=== PATIENT | female | born 1950 | race Asian ===

== ENCOUNTER 2023-02-25 15:24 | Inpatient (IN) ==
[2023-02-25] MEDS ORDERED: OPTIRAY 320 500ml IV ONE (15:52)
[2023-02-25 16:05] LABS: Basophils # (auto) 0.07 K/uL (0-0.2); Eosinophils # (auto) 0.64 K/uL (0-0.50); Eosinophils % (auto) 9.4 %; Hematocrit (blood only) 38.4 % (37.0-47.0); Hemoglobin 12.9 g/dl (12.0-16.0); Immature Granulocytes # (auto) 0.07 K/uL (0.01-0.20); Lymphocytes # (auto) 1.66 K/uL (1.2-3.4); Lymphocytes % (auto) 24.4 %; Mean Corpuscular Hemoglobin 31.1 pg (25.0-34.0); Mean Corpuscular Hgb Conc 33.6 g/dL (32.0-36.0); Mean Corpuscular Volume 92.5 fL (80.0-100.0); Mean Platelet Volume 10.3 fL (9.4-12.4); Monocytes # (auto) 0.59 K/uL (0.11-0.59); Monocytes % (auto) 8.7 %; Neutrophils # (auto) 3.78 K/uL (1.40-6.50); Neutrophils % (auto) 55.5 %; Platelet Count 235 K/uL (130-400); RDW Coefficient of Variation 14.2 % (11.5-14.5); RDW Standard Deviation 47.9 fL (36.4-46.3); Red Blood Count 4.15 M/uL (4.20-5.40); White Blood Count 6.81 K/ul (4.8-10.8)
--- NOTE | 2023-02-25 16:09 | CT Scan Report ---
CT head/brain wo con, CT angio neck with con, CT angio head w con CLINICAL HISTORY: 72 years-old Female with neuro deficit, acute stroke suspected. Acute strokelike s ymptoms TECHNIQUE: Multiple axial CT images of the head were obtained without contrast. CTA had and neck was also obtained following the intravenous ministration of 111 Optiray 320. 3-D coronal and sagittal ID PS were obtained and submitted for review. All measurements were obtained according to NASCET criteri a. A dose lowering technique was utilized adhering to the principles of ALARA. CT DOSE: 1047.40 mGy.cm COMPARISON: None. FINDINGS: CT HEAD: No acute intracranial hemorrhage, midline shift, intracranial mass, hydrocephalus, territorial ischem ia or abnormal extra-axial collection. Involutional changes with chronic microvascular ischemic disea se. The calvarium is intact. Trace mastoid effusions. Mild mucosal thickening of the paranasal sinuses. CTA HEAD AND NECK: Cardiomegaly with prior median sternotomy. Atherosclerosis of the aorta. Patency of the innominate an d imaged subclavian arteries. The common carotid arteries are widely patent. Minimal atherosclerosis of the internal carotid arteries without significant stenosis. There is tortuosity within the distal cervical segments of the internal carotid arteries. The middle and anterior cerebral arteries appear patent. The vertebral arteries are codominant and appear widely patent. The basilar and posterior cer ebral arteries are also patent. Cerebral venous sinuses are patent. There is no abnormal intracranial enhancement. No pneumothorax. Unremarkable soft tissues. Degenerative changes of the cervical spine. IMPRESSION: 1. No acute intracranial abnormality. 2. Unremarkable CTA of the head and neck. ACT 112: Negative or not required by law. The above report was generated using voice recognition software. It may contain grammatical, syntax o r spelling errors. Electronically signed by: Fernando Madsen M.D. 02/25/2023 4:07 PM
[2023-02-25 16:23] LABS: Alanine Aminotransferase 15 U/L (7-52); Albumin Globulin Ratio 1.1 (0.9-2); Albumin Level 4.3 gm/dl (3.4-5.0); Alkaline Phosphatase 85 U/L (34-104); Anion Gap 8 (3-11); Aspartate Aminotransferase 35 U/L (13-39); BUN Creatinine Ratio 20.9 (10-20); Bilirubin,Total 0.6 mg/dl (0.2-1.0); Blood Urea Nitrogen 19 mg/dl (6-23); Calcium 9.3 mg/dl (8.6-10.3); Carbon Dioxide 24 mmol/L (21-32); Chloride 103 mmol/L (98-107); Est GFR (African American) 74.1 ml/min; Est GFR (Non-African American) 63.9 ml/min; Globulin 3.8 gm/dl (2.5-4.0); Glucose 131 mg/dl (70-99(Fasting)); Magnesium 2.1 mg/dl (1.7-2.4); Potassium 4.7 mmol/L (3.5-5.1); Sodium 135 mmol/L (136-145); Total Protein 8.1 gm/dl (6.0-8.3)
[2023-02-25] MEDS ORDERED: METOPROLOL TARTRATE 1 MG/ML VIAL IV STA (16:33)
[2023-02-25 16:36] LABS: INR 1.4 (0.9-1.1); Partial Thromboplastin Ratio 1.1; Partial Thromboplastin Time 30.4 Seconds (21.0-31.0); Prothrombin Time 15.4 Seconds (9.0-12.0)
[2023-02-25] MEDS ORDERED: SODIUM CHLORIDE 0.9% 10ML FLUSH IV STA (16:42)
[2023-02-25] MEDS ORDERED: STAT IV STA (16:42)
[2023-02-25] MEDS ORDERED: No Aspirin within 24hrs of THROMBOLYTIC-Stroke PO SCH (16:45)
[2023-02-25 16:48] LABS: Troponin I High Sensitivity 306.4 pg/ml (0-14)
[2023-02-25] MEDS ORDERED: TENECTEPLASE 15 MG in SYRINGE 0 ML IV ONE (16:52)
--- NOTE | 2023-02-25 17:43 | XRay Report ---
SINGLE VIEW CHEST CLINICAL HISTORY: Neurological deficit. Stroke like symptoms. FINDINGS: An AP, portable, upright chest radiograph is obtained. No prior studies are available for c omparison at the time of dictation. The patient is status post midline sternotomy and cardiac valve s urgery. The heart is enlarged noting atherosclerotic calcification of the thoracic aorta. The pulmona ry vasculature is noncongested. Nonspecific interstitial thickening likely chronic. There is bibasila r scarring/atelectasis. No airspace consolidation or large pleural effusion is identified. No pneumot horax is seen. The skeletal structures are osteopenic. The bony thorax is grossly intact. IMPRESSION: Cardiomegaly with no acute cardiopulmonary abnormality identified. ACT 112: Negative or not required by law. Electronically signed by: Nathen Katz M.D. 02/25/2023 5:42 PM
[2023-02-25] MEDS ORDERED: LABETALOL HCL IV 5 MG/ML 20ML IV STA (18:05)
[2023-02-25] MEDS ORDERED: hydrALAZINE HCL 20 MG/ML VIAL IV ONE (18:33)
--- NOTE | 2023-02-25 18:47 | History & Physical Report ---
Date of Service February 25, 2023 Assessment & Plan (1) Stroke-like symptoms: Plan: Patient is 72 y/o F with PMH mechanical valve replacement in 2000 in [place], on chronic anticoagulation presented to ER with her son with c/o dysarthria prior to arrival. Speaks Artemio, gujarati. Last anticoagulate taken yesterday evening. In ER noted dysphagia and right sided facial droop. Stroke alert. Patient was given TNK. During ER course right facial droop and dysarthria have resolved. Hypertensive in ER and given labetalol and hydralazine CT Head: No acute intracranial abnormality CTA Head, Neck: No acute intracranial abnormality. Unremarkable CTA of the head and neck. CXR: Cardiomegaly with no acute cardiopulmonary abnormality identified. Admit ICU for observation after TNK Lipid panel, A1c in am MRI brain if able to confirm mechanical valve info. Son is trying to find more info. The MRI department reached out to the websphere administrator, however websphere administrator was unable to look up information on this since this was done outside of the [place]. MRI on hold until further information can be obtained Echo aspiration precautions PT/OT consult Hold aspirin and Coumadin equivalent Neurology consult Repeat CT head (2) Atrial fibrillation: Plan: In ER noted to have atrial fibrillation. HR up to low 100s. Was given Lopressor 5 mg IV with improvement of heart rate down into the 80s No known prior history atrial fibrillation per patient and patient's family Echo Monitor HR, may need further rate control On home med equivalent to Coumadin. Hold for now secondary to receiving TNK Cardiology consult TSH in am (3) Elevated troponin: Plan: High-sensitivity troponin: 306. Denies chest pain May be demand ischemia from atrial fibrillation RVR Trend troponin EKG: Atrial fibrillation, rate 99, nonspecific ST and T wave changes Repeat EKG in a.m. Cardiology consult (4) Mechanical heart valve present: Plan: History mechanical heart valve replacement Chronically anticoagulated on equivalent Coumadin INR: 1.4 DVT Prophylaxis SCDs Full code as per discussion with pt, pt's son Pt was seen and care coordinated with Dr Gill. See addendum I spent a total of 78 minutes reviewing notes, outpatient records, labs, medication, coordinating, documenting and providing care for this patient excluding time spent in the performance of separately billed services. History of Present Illness Chief Complaint: Speech changes Primary Care Provider: NO PCP Patient is 72 y/o F with H mechanical valve replacement in 2000 in [place], on chronic anticoagulation presented to ER with her son with c/o dysarthria prior to arrival. History obtained from patient, patient's son. Speaks Artemio, gujarati. Hand Clerical Verifier services were needed. Reports that patient was riding in the car with her daughter in law. Daughter in law thought patient was sleeping however tried to arouse and was difficult to understand patient and she noticed patient had right facial droop and was drooling. She was having difficulty talking. Reports symptoms started approximately 15 minutes prior to arrival. In ER the wrap knitting machine operator noted dysphagia and tele stroke alert was called. Patient was given TNK. During ER course right facial droop and dysarthria have resolved. Denies fever/chills, diaphoresis, N/V/D/C, MCKAY, dizziness, syncope, vision changes, neck pain, CP, SOB, palpitations, cough, abdominal pain, paresthesias, weakness, extremity weakness, extremity edema, rashes, urinary symptoms. Reports had anticoagulant last night. Denies No known afib, HTN, TIA, stroke Allergies Allergy/AdvReac Type Severity Reaction Status Date / Time No Known Allergies Allergy Verified 02/25/23 16:22 Home Medications Medication Instructions Recorded Confirmed Type Acenocoumarol 0.5 mg PO DAILY 02/25/23 02/25/23 History Spironlactone + Frusemide 1 tab PO DAILY 02/25/23 02/25/23 History aspirin 81 mg tablet,delayed 81 mg PO DAILY 02/25/23 02/25/23 History release carvedilol 12.5 mg tablet 12.5 mg PO BID 02/25/23 02/25/23 History Past Med/Surg History Medical History (Updated 02/25/23 @ 20:15 by Nelly Norman PA-C) Chronic anticoagulation Surgical History (Updated 02/25/23 @ 19:12 by Nelly Norman PA-C) Mechanical heart valve present Family History (Updated 02/26/23 @ 09:31 by Kevin Holden MD) Mother , of a stroke at age 65 Stroke Father , age 60 from throat cancer Cancer Social History (Updated 02/25/23 @ 19:15 by Nelly Schreckengost, PA-C) Smoking Status: Never smoker Hx Alcohol Use: No Hx Substance Use: No Preferred Language: Gujarati Communication Ability: Impaired Communication Tools: IPad Hand Clerical Verifier Required: Yes Beliefs That Will Affect Care: None Current Living Situation: Spouse Current Living Situation Comment: home with current occupational status: unemployed Feels Safe at Home: Yes Assistive Devices: None Review of Systems Review of Systems: All systems reviewed & are unremarkable except as noted in HPI & below Physical Exam Physical Exam: General: no distress, WDWN Head: normocephalic, atraumatic Eyes: PERRL, EOM's intact, conjunctiva non-injected, anicteric ENT: normal inspection external ears, nose, mucous membranes moist Neck: supple, trachea midline Lungs: clear, no respiratory distress, no wheezing/rhonchi/rales CV: irregularly irregular, rate 80, + murmur, no pretibial edema Abd: normal BS, soft, non-tender Ext: no cyanosis, no calf tenderness Neuro: A&O x 3, EOMs intact. No nystagmus, facial sensation is intact and symmetric, face is strong and symmetric, hearing grossly intact, soft palate elevates symmetrically, no dysarthria, houlder shrug intact, tongue is midline, normal movement, no fasciculations, bilateral upper and lower extremities 5/5 strength Skin: warm, dry Results & Data Results & Data Vital Signs (Past 12 Hours) Vital Signs Temp Pulse Pulse Resp BP BP Pulse Ox 02/25/23 18:30 87 17 179/118 H 95 02/25/23 18:15 79 16 167/109 H 96 02/25/23 18:00 76 17 184/121 H 97 02/25/23 17:30 36.8 C 81 17 145/91 H 98 02/25/23 17:19 81 20 134/95 98 02/25/23 17:15 98 H 16 141/106 H 98 02/25/23 17:00 84 16 155/92 H 96 02/25/23 16:59 97 H 152/105 H 02/25/23 16:44 97 H 18 159/93 H 96 02/25/23 16:18 102 H 02/25/23 16:08 106 H 22 156/106 H 96 02/25/23 15:26 36.6 C 106 H 18 155/103 H 99 O2 Del Method 02/25/23 18:30 Room Air 02/25/23 18:15 Room Air 02/25/23 18:00 Room Air 02/25/23 17:30 Room Air 02/25/23 17:19 Room Air 02/25/23 17:15 Room Air 02/25/23 17:00 Room Air 02/25/23 16:59 02/25/23 16:44 Room Air 02/25/23 16:18 02/25/23 16:08 Room Air 02/25/23 15:26 Room Air Laboratory Results Short CBC 02/25/23 Range/Units 15:44 WBC 6.81 (4.8-10.8) K/ul Hgb 12.9 (12.0-16.0) g/dl Hct 38.4 (37.0-47.0) % Plt Count 235 (130-400) K/uL BMP 02/25/23 15:44 Sodium 135 L Potassium 4.7 Chloride 103 Carbon Dioxide 24 BUN 19 Creatinine 0.91 Glucose 131 H Calcium 9.3 Liver Function 02/25/23 Range/Units 15:44 Total Bilirubin 0.6 (0.2-1.0) mg/dl AST 35 (13-39) U/L ALT 15 (7-52) U/L Alkaline Phosphatase 85 (34-104) U/L Albumin 4.3 (3.4-5.0) gm/dl Diagnostic Findings Chest X-Ray 02/25/23 15:41 SINGLE VIEW CHEST CLINICAL HISTORY: Neurological deficit. Stroke like symptoms. FINDINGS: An AP, portable, upright chest radiograph is obtained. No prior studies are available for comparison at the time of dictation. The patient is status post midline sternotomy and cardiac valve surgery. The heart is enlarged noting atherosclerotic calcification of the thoracic aorta. The pulmonary vasculature is noncongested. Nonspecific interstitial thickening likely chronic. There is bibasilar scarring/atelectasis. No airspace consolidation or large pleural effusion is identified. No pneumothorax is seen. The skeletal structures are osteopenic. The bony thorax is grossly intact. IMPRESSION: Cardiomegaly with no acute cardiopulmonary abnormality identified. ACT 112: Negative or not required by law. Electronically signed by: Nathen Katz M.D. 02/25/2023 5:[address] 02/25/23 15:41 CT head/brain wo con, CT angio neck with con, CT angio head w con CLINICAL HISTORY: 72 years-old Female with neuro deficit, acute stroke suspected. Acute strokelike symptoms TECHNIQUE: Multiple axial CT images of the head were obtained without contrast. CTA had and neck was also obtained following the intravenous ministration of 111 Optiray 320. 3-D coronal and sagittal MIPS were obtained and submitted for review. All measurements were obtained according to NASCET criteria. A dose lowering technique was utilized adhering to the principles of ALARA. CT DOSE: 1047.40 mGy.cm COMPARISON: None. FINDINGS: CT HEAD: No acute intracranial hemorrhage, midline shift, intracranial mass, hydrocephalus, territorial ischemia or abnormal extra-axial collection. Involutional changes with chronic microvascular ischemic disease. The calvarium is intact. Trace mastoid effusions. Mild mucosal thickening of the paranasal sinuses. CTA HEAD AND NECK: Cardiomegaly with prior median sternotomy. Atherosclerosis of the aorta. Patency of the innominate and imaged subclavian arteries. The common carotid arteries are widely patent. Minimal atherosclerosis of the internal carotid arteries without significant stenosis. There is tortuosity within the distal cervical segments of the internal carotid arteries. The middle and anterior cerebral arteries appear patent. The vertebral arteries are codominant and appear widely patent. The basilar and posterior cerebral arteries are also patent. Cerebral venous sinuses are patent. There is no abnormal intracranial enhancement. No pneumothorax. Unremarkable soft tissues. Degenerative changes of the cervical spine. IMPRESSION: 1. No acute intracranial abnormality. 2. Unremarkable CTA of the head and neck. ACT 112: Negative or not required by law. The above report was generated using voice recognition software. It may contain grammatical, syntax or spelling errors. Electronically signed by: Fernando Madsen M.D. 02/25/2023 4:07 PM Head CTA 02/25/23 15:41 CT head/brain wo con, CT angio neck with con, CT angio head w con CLINICAL HISTORY: 72 years-old Female with neuro deficit, acute stroke suspected. Acute strokelike symptoms TECHNIQUE: Multiple axial CT images of the head were obtained without contrast. CTA had and neck was also obtained following the intravenous ministration of 111 Optiray 320. 3-D coronal and sagittal MIPS were obtained and submitted for review. All measurements were obtained according to NASCET criteria. A dose lowering technique was utilized adhering to the principles of ALARA. CT DOSE: 1047.40 mGy.cm COMPARISON: None. FINDINGS: CT HEAD: No acute intracranial hemorrhage, midline shift, intracranial mass, hydrocephalus, territorial ischemia or abnormal extra-axial collection. Involutional changes with chronic microvascular ischemic disease. The calvarium is intact. Trace mastoid effusions. Mild mucosal thickening of the paranasal sinuses. CTA HEAD AND NECK: Cardiomegaly with prior median sternotomy. Atherosclerosis of the aorta. Patency of the innominate and imaged subclavian arteries. The common carotid arteries are widely patent. Minimal atherosclerosis of the internal carotid arteries without significant stenosis. There is tortuosity within the distal cervical segments of the internal carotid arteries. The middle and anterior cerebral arteries appear patent. The vertebral arteries are codominant and appear widely patent. The basilar and posterior cerebral arteries are also patent. Cerebral venous sinuses are patent. There is no abnormal intracranial enhancement. No pneumothorax. Unremarkable soft tissues. Degenerative changes of the cervical spine. IMPRESSION: 1. No acute intracranial abnormality. 2. Unremarkable CTA of the head and neck. ACT 112: Negative or not required by law. The above report was generated using voice recognition software. It may contain grammatical, syntax or spelling errors. Electronically signed by: Fernando Madsen M.D. 02/25/2023 4:07 PM Neck CTA 02/25/23 15:41 CT head/brain wo con, CT angio neck with con, CT angio head w con CLINICAL HISTORY: 72 years-old Female with neuro deficit, acute stroke suspected. Acute strokelike symptoms TECHNIQUE: Multiple axial CT images of the head were obtained without contrast. CTA had and neck was also obtained following the intravenous ministration of 111 Optiray 320. 3-D coronal and sagittal MIPS were obtained and submitted for review. All measurements were obtained according to NASCET criteria. A dose lowering technique was utilized adhering to the principles of ALARA. CT DOSE: 1047.40 mGy.cm COMPARISON: None. FINDINGS: CT HEAD: No acute intracranial hemorrhage, midline shift, intracranial mass, hydrocephalus, territorial ischemia or abnormal extra-axial collection. Involutional changes with chronic microvascular ischemic disease. The calvarium is intact. Trace mastoid effusions. Mild mucosal thickening of the paranasal sinuses. CTA HEAD AND NECK: Cardiomegaly with prior median sternotomy. Atherosclerosis of the aorta. Patency of the innominate and imaged subclavian arteries. The common carotid arteries are widely patent. Minimal atherosclerosis of the internal carotid arteries without significant stenosis. There is tortuosity within the distal cervical segments of the internal carotid arteries. The middle and anterior cerebral arteries appear patent. The vertebral arteries are codominant and appear widely patent. The basilar and posterior cerebral arteries are also patent. Cerebral venous sinuses are patent. There is no abnormal intracranial enhancement. No pneumothorax. Unremarkable soft tissues. Degenerative changes of the cervical spine. IMPRESSION: 1. No acute intracranial abnormality. 2. Unremarkable CTA of the head and neck. ACT 112: Negative or not required by law. The above report was generated using voice recognition software. It may contain grammatical, syntax or spelling errors. Electronically signed by: Fernando Madsen M.D. 02/25/2023 4:07 PM Supervising Physician Co-Signing Physician Notes Pt was seen and examined. Agreed with Nelly GARCIA exam, assessment and plan. 72 y/o F with H mechanical valve replacement in 2000 in [facility], on chronic anticoagulation presented to ER with her son with c/o dysarthria and facial droop prior to arrival. History obtained from patient, patient's son who speaks Artemio, gujarati and Bermudian. Hand Clerical Verifier services were needed. Pt was riding in a car with her daughter in-law when she become sleeping. Daaughter tried to arouse her when she noticed slurred speech and right facial droop and drooling. In the ER the wrap knitting machine operator noted the slurred speech and tele stroke alert was called. Since pt arrived in the hospital 15 minutes prior to symptoms onset, decision was made to give TNK. It seems like before administering the TNK, that the ER provider and pharmacy did not know pt was on coumadin like, but INR was 1.4. Currently her symptoms resolved. She is smilling and talking appropriately. Pt or son does not recall any of her provider in the past mentioned any history of Afib or irregular heart. Denies diaphoresis, N/V/D/C, MCKAY, dizziness, syncope, vision changes, neck pain, CP, SOB, palpitations, cough, abdominal pain, paresthesias, weakness, extremity weakness. Her neuro exam was normal with no focal neuro deficit, motor and sensation intake, heart was irregular, with normal lung sound. CT head showed no acute intracranial abnormality. CTA head and neck showed no acute intracranial abnormality. Unremarkable CTA of the head and neck. Will monitor closely in the ICU as per post TPA protocol. ICU team was notified. Will start aspirin and anticoagulant after 24 hrs post TPA. Will consult neuro. Will get MRI of head. Cardiology consult. PT/OT/Speech eval. Continue monitor closely for any abnormal bleeding. MD Jairo
--- NOTE | 2023-02-25 19:43 | Emergency Department Note ---
Impression & Plan Acute cerebrovascular accident (CVA), Mechanical heart valve present, Chronic anticoagulation, Atrial fibrillation by electrocardiogram ED Provider Note CHIEF COMPLAINT: Stroke symptoms HISTORY OF PRESENT ILLNESS: This 72-year-old female patient with past medical history of valve replacement on a Coumadin like drug from [place], presents to the emergency department with strokelike symptoms. Per the patient's family, she was riding in the car with her [id number]. [id number] felt that the patient looked like she was asleep but noticed that she had some facial droop and drooling. She woke her and asked her several questions that she did not answer appropriately. Patient was not able to state her name or her date of . Her speech was a bit slurred. Family brought her to the emergency department for further evaluation. Of note the patient does not speak Maori, she speaks Gujarati and Artemoi. 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 10 systems were reviewed and are otherwise negative. ALLERGIES: see below MEDICATIONS: see below PMH: see below SOCIAL HISTORY: see below DDx: Infection, dehydration, metabolic abnormality, hypo/hyperglycemia, electrolyte disturbance, anemia, hypoxia, cardiac sources, intracerebral event, toxicologic, neurologic, as well as other pathologies. PHYSICAL EXAM: Vital signs reviewed. Noted to be slightly hypertensive General: Well-appearing 72-year-old female, in no significant distress. HEENT: No scleral icterus or conjunctival injection, PERRLA, neck supple. Atraumatic. Cardiovascular: Slightly tachycardic and irregular, systolic ejection murmur Pulmonary: Clear to auscultation bilaterally, normal work of breathing. Abdomen: Soft, nontender, nondistended, positive bowel sounds. Musculoskeletal: Atraumatic, no peripheral edema. Neurologic: Patient awake and alert with slurred speech (per family). Patient does have right-sided facial droop. Intact [id number], equal strength in the bilateral upper extremities and lower extremities. Skin: Warm, dry, no rash EMERGENCY DEPARTMENT COURSE/MDM: This patient was evaluated and appeared to be in no significant distress. IV access was obtained and laboratory work was drawn. The patient was placed on a resident care aid noted to be hypertensive with diastolic blood pressures consistently over 100. Patient arrived with family members to triage. There was some difficulty in obtaining the history as the patient does not speak Maori, son at the bedside did however he was not with the patient when the stroke symptoms occurred. The language line was utilized. Physical examination reveals a right-sided facial droop and some dysarthria per family. Patient was noted to be in atrial fibrillation which she denied any history of. The patient is a limited [facility] for a week and all of her medical care is in [place]. Medications were reviewed and patient is noted to be on Acenocoumarol, anticoagulant similar to Coumadin but not approved in the [place], per pharmacy. [id number] INR was 1.7. Patient's family member states she is on the anticoagulant due to a valve replacement. Telestroke radiologist was consulted, and happened to speak Gujarati which is the patient's negative language. She has determined that the patient had a significant dysarthria and facial droop present. Dr. Ordoñez from telestroke radiology felt the patient met criteria for TNKase. INR through lab was 1.4. Patient's family at the bedside acknowledged the risks and benefits with the telestroke neurologist and it was within the 3-hour window. Medication was administered. Patient did require blood pressure management as systolic pressures were 180 with diastolic pressures were over 100 consistently. Patient was given 5 mg of IV labetalol with modest blood pressure control. She was then given 5 mg of IV hydralazine approximately 30 minutes later for continued hypertension. The patient's neurologic symptoms did improve including facial droop, family noticed improvement of her dysarthria and stated she was back to baseline. The case was discussed with the hospitalist service who agreed to evaluate the patient for admission and further management. The patient was well within the window for TNKase when it was administered, however it was difficult to determine the patient's eligibility due to the language barrier, unfamiliar Coumadin-like drug and awaiting INR. MONITORING: An order for cardiac monitoring was placed and the patient is noted to be in a atrial fibrillation at 99 beats per minute. RADIOLOGY: CXR to my review is negative for focal issue or failure. Head CT to my review is negative for acute intracranial abnormality. Otherwise defer to radiology. CT angio of the head and neck per radiology is unremarkable, please see final reads below EKG: To my interpretation reveals atrial fibrillation at 99 bpm, nonspecific ST and T wave abnormality. QTc 474. No previous for comparison. DISPOSITION: Admission I have personally spent 75 minutes of critical care time in the direct management of this patient. This was a life/limb threatening event. This 75 minutes is in excess of all separately billable procedures. 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 Beliefs That Will Affect Care: None Current Living Situation: Spouse Current Living Situation Comment: home with current occupational status: unemployed Feels Safe at Home: Yes Assistive Devices: None Allergies Allergies Allergy/AdvReac Type Severity Reaction Status Date / Time No Known Allergies Allergy Verified 02/25/23 16:22 Home Meds Home Medications Medication Instructions Recorded Confirmed Acenocoumarol 0.5 mg PO DAILY 02/25/23 02/25/23 Spironlactone + Frusemide 1 tab PO DAILY 02/25/23 02/25/23 aspirin 81 mg tablet,delayed 81 mg PO DAILY 02/25/23 02/25/23 release carvedilol 12.5 mg tablet 12.5 mg PO BID 02/25/23 02/25/23 Results & Data (ED) Vital Signs Vital Signs - 24 hr 02/25/23 15:26 02/25/23 16:08 02/25/23 16:18 Temperature 36.6 C Temperature Source Temporal Artery Scan Pulse Rate 106 H 102 H Pulse Rate [Apical] 106 H Pulse Rhythm [Apical] Irregular Pulse Strength [Apical] Normal Respiratory Rate 18 22 Respiratory Effort / Characteristics Non-Labored Spontaneous Non-Labored Spontaneous Respiratory Depth Normal Normal Respiratory Pattern Regular Regular Blood Pressure 155/103 H Blood Pressure [Right Arm] 156/106 H Blood Pressure Mean 120 Blood Pressure Mean [Right Arm] 122 Blood Pressure Position Sitting Blood Pressure Position [Right Arm] Pulse Oximetry 99 96 Oxygen Delivery Method Room Air Room Air Sepsis Recent Fever Within 48 Hours No Sepsis New/Unexplained Change in Mental Status No Sepsis Action Taken by Nursing No Action Required 02/25/23 16:44 02/25/23 16:59 02/25/23 17:00 Temperature Temperature Source Pulse Rate 97 H Pulse Rate [Apical] 97 H 84 Pulse Rhythm [Apical] Irregular Irregular Pulse Strength [Apical] Respiratory Rate 18 16 Respiratory Effort / Characteristics Non-Labored Spontaneous Non-Labored Spontaneous Respiratory Depth Normal Normal Respiratory Pattern Regular Regular Blood Pressure 152/105 H Blood Pressure [Right Arm] 159/93 H 155/92 H Blood Pressure Mean Blood Pressure Mean [Right Arm] 115 113 Blood Pressure Position Blood Pressure Position [Right Arm] Semi-fowlers Pulse Oximetry 96 96 Oxygen Delivery Method Room Air Room Air Sepsis Recent Fever Within 48 Hours Sepsis New/Unexplained Change in Mental Status Sepsis Action Taken by Nursing 02/25/23 17:15 02/25/23 17:19 02/25/23 17:30 Temperature 36.8 C Temperature Source Oral Pulse Rate Pulse Rate [Apical] 98 H 81 81 Pulse Rhythm [Apical] Irregular Irregular Irregular Pulse Strength [Apical] Respiratory Rate 16 20 17 Respiratory Effort / Characteristics Non-Labored Spontaneous Non-Labored Spontaneous Non-Labored Spontaneous Respiratory Depth Normal Normal Normal Respiratory Pattern Regular Regular Regular Blood Pressure Blood Pressure [Right Arm] 141/106 H 134/95 145/91 H Blood Pressure Mean Blood Pressure Mean [Right Arm] 117 108 109 Blood Pressure Position Blood Pressure Position [Right Arm] Semi-fowlers Semi-fowlers Pulse Oximetry 98 98 98 Oxygen Delivery Method Room Air Room Air Room Air Sepsis Recent Fever Within 48 Hours Sepsis New/Unexplained Change in Mental Status Sepsis Action Taken by Nursing 02/25/23 18:00 02/25/23 18:15 02/25/23 18:30 Temperature Temperature Source Pulse Rate Pulse Rate [Apical] 76 79 87 Pulse Rhythm [Apical] Irregular Irregular Irregular Pulse Strength [Apical] Respiratory Rate 17 16 17 Respiratory Effort / Characteristics Non-Labored Spontaneous Non-Labored Spontaneous Non-Labored Spontaneous Respiratory Depth Normal Normal Normal Respiratory Pattern Regular Regular Regular Blood Pressure Blood Pressure [Right Arm] 184/121 H 167/109 H 179/118 H Blood Pressure Mean Blood Pressure Mean [Right Arm] 142 128 138 Blood Pressure Position Blood Pressure Position [Right Arm] Semi-fowlers Semi-fowlers Pulse Oximetry 97 96 95 Oxygen Delivery Method Room Air Room Air Room Air Sepsis Recent Fever Within 48 Hours Sepsis New/Unexplained Change in Mental Status Sepsis Action Taken by Nursing 02/25/23 18:45 02/25/23 19:03 02/25/23 19:23 Temperature 37.0 C Temperature Source Oral Pulse Rate Pulse Rate [Apical] 92 H 82 86 Pulse Rhythm [Apical] Irregular Pulse Strength [Apical] Respiratory Rate 16 19 20 Respiratory Effort / Characteristics Non-Labored Spontaneous Non-Labored Spontaneous Non-Labored Spontaneous Respiratory Depth Normal Normal Normal Respiratory Pattern Regular Regular Regular Blood Pressure Blood Pressure [Right Arm] 122/89 125/72 143/78 H Blood Pressure Mean Blood Pressure Mean [Right Arm] 100 89 99 Blood Pressure Position Blood Pressure Position [Right Arm] Semi-fowlers Semi-fowlers Semi-fowlers Pulse Oximetry 95 96 98 Oxygen Delivery Method Room Air Room Air Room Air Sepsis Recent Fever Within 48 Hours Sepsis New/Unexplained Change in Mental Status Sepsis Action Taken by Care Home Medications Current Medication List: was personally reviewed by me Laboratory Data Attestation: I reviewed the patient's lab results. 02/25/23 15:44 02/25/23 15:44 Lab Results 02/25/23 02/25/23 02/25/23 Range/Units 15:44 15:44 15:44 WBC 6.81 (4.8-10.8) K/ul RBC 4.15 L (4.20-5.40) M/uL Hgb 12.9 (12.0-16.0) g/dl Hct 38.4 (37.0-47.0) % MCV 92.5 (80.0-100.0) fL MCH 31.1 (25.0-34.0) pg MCHC 33.6 (32.0-36.0) g/dL RDW Std Deviation 47.9 H (36.4-46.3) fL RDW Coeff of Ibeth 14.2 (11.5-14.5) % Plt Count 235 (130-400) K/uL MPV 10.3 (9.4-12.4) fL Immature Gran % (Auto) 1.0 % Neut % (Auto) 55.5 % Lymph % (Auto) 24.4 % Atlantic % (Auto) 8.7 % Eos % (Auto) 9.4 % Baso % (Auto) 1.0 % Neut # (Auto) 3.78 (1.40-6.50) K/uL Lymph # (Auto) 1.66 (1.2-3.4) K/uL Atlantic # (Auto) 0.59 (0.11-0.59) K/uL Eos # (Auto) 0.64 H (0-0.50) K/uL Baso # (Auto) 0.07 (0-0.2) K/uL Immature Gran # (Auto) 0.07 (0.01-0.20) K/uL PT 15.4 H (9.0-12.0) Seconds POC INR (0.9-1.1) INR 1.4 H (0.9-1.1) APTT 30.4 (21.0-31.0) Seconds PTT Ratio 1.1 Sodium (136-145) mmol/L Potassium (3.5-5.1) mmol/L Chloride (98-107) mmol/L Carbon Dioxide (21-32) mmol/L Anion Gap (3-11) BUN (6-23) mg/dl Creatinine (0.6-1.2) mg/dl Est Cr Clr Drug Dosing Est GFR ( Amer) ml/min Est GFR (Non-Af Amer) ml/min BUN/Creatinine Ratio (10-20) Glucose (70-99(Fasting)) mg/dl POC Glucose (70-99) mg/dl Calcium (8.6-10.3) mg/dl Magnesium (1.7-2.4) mg/dl Total Bilirubin (0.2-1.0) mg/dl AST (13-39) U/L ALT (7-52) U/L Alkaline Phosphatase (34-104) U/L Troponin I High Sens (0-14) pg/ml Total Protein (6.0-8.3) gm/dl Albumin (3.4-5.0) gm/dl Globulin (2.5-4.0) gm/dl Albumin/Globulin Ratio (0.9-2) SARS-CoV-2, RNA, NAAT (NEGATIVE) Blood Type B Positive Antibody Screen NEGATIVE 04/21/23 04/21/23 04/21/23 Range/Units 15:44 16:04 16:13 WBC (4.8-10.8) K/ul RBC (4.20-5.40) M/uL Hgb (12.0-16.0) g/dl Hct (37.0-47.0) % MCV (80.0-100.0) fL MCH (25.0-34.0) pg MCHC (32.0-36.0) g/dL RDW Std Deviation (36.4-46.3) fL RDW Coeff of Ibeth (11.5-14.5) % Plt Count (130-400) K/uL MPV (9.4-12.4) fL Immature Gran % (Auto) % Neut % (Auto) % Lymph % (Auto) % Atlantic % (Auto) % Eos % (Auto) % Baso % (Auto) % Neut # (Auto) (1.40-6.50) K/uL Lymph # (Auto) (1.2-3.4) K/uL Atlantic # (Auto) (0.11-0.59) K/uL Eos # (Auto) (0-0.50) K/uL Baso # (Auto) (0-0.2) K/uL Immature Gran # (Auto) (0.01-0.20) K/uL PT (9.0-12.0) Seconds POC INR 1.7 H (0.9-1.1) INR (0.9-1.1) APTT (21.0-31.0) Seconds PTT Ratio Sodium 135 L (136-145) mmol/L Potassium 4.7 (3.5-5.1) mmol/L Chloride 103 (98-107) mmol/L Carbon Dioxide 24 (21-32) mmol/L Anion Gap 8 (3-11) BUN 19 (6-23) mg/dl Creatinine 0.91 (0.6-1.2) mg/dl Est Cr Clr Drug Dosing Not Reportable Est GFR ( Amer) 74.1 ml/min Est GFR (Non-Af Amer) 63.9 ml/min BUN/Creatinine Ratio 20.9 H (10-20) Glucose 131 H (70-99(Fasting)) mg/dl POC Glucose 104 H (70-99) mg/dl Calcium 9.3 (8.6-10.3) mg/dl Magnesium 2.1 (1.7-2.4) mg/dl Total Bilirubin 0.6 (0.2-1.0) mg/dl AST 35 (13-39) U/L ALT 15 (7-52) U/L Alkaline Phosphatase 85 (34-104) U/L Troponin I High Sens 306.4 H* (0-14) pg/ml Total Protein 8.1 (6.0-8.3) gm/dl Albumin 4.3 (3.4-5.0) gm/dl Globulin 3.8 (2.5-4.0) gm/dl Albumin/Globulin Ratio 1.1 (0.9-2) SARS-CoV-2, RNA, NAAT (NEGATIVE) Blood Type Antibody Screen 02/25/23 Range/Units 16:19 WBC (4.8-10.8) K/ul RBC (4.20-5.40) M/uL Hgb (12.0-16.0) g/dl Hct (37.0-47.0) % MCV (80.0-100.0) fL MCH (25.0-34.0) pg MCHC (32.0-36.0) g/dL RDW Std Deviation (36.4-46.3) fL RDW Coeff of Ibeth (11.5-14.5) % Plt Count (130-400) K/uL MPV (9.4-12.4) fL Immature Gran % (Auto) % Neut % (Auto) % Lymph % (Auto) % Atlantic % (Auto) % Eos % (Auto) % Baso % (Auto) % Neut # (Auto) (1.40-6.50) K/uL Lymph # (Auto) (1.2-3.4) K/uL Atlantic # (Auto) (0.11-0.59) K/uL Eos # (Auto) (0-0.50) K/uL Baso # (Auto) (0-0.2) K/uL Immature Gran # (Auto) (0.01-0.20) K/uL PT (9.0-12.0) Seconds POC INR (0.9-1.1) INR (0.9-1.1) APTT (21.0-31.0) Seconds PTT Ratio Sodium (136-145) mmol/L Potassium (3.5-5.1) mmol/L Chloride (98-107) mmol/L Carbon Dioxide (21-32) mmol/L Anion Gap (3-11) BUN (6-23) mg/dl Creatinine (0.6-1.2) mg/dl Est Cr Clr Drug Dosing Est GFR ( Amer) ml/min Est GFR (Non-Af Amer) ml/min BUN/Creatinine Ratio (10-20) Glucose (70-99(Fasting)) mg/dl POC Glucose (70-99) mg/dl Calcium (8.6-10.3) mg/dl Magnesium (1.7-2.4) mg/dl Total Bilirubin (0.2-1.0) mg/dl AST (13-39) U/L ALT (7-52) U/L Alkaline Phosphatase (34-104) U/L Troponin I High Sens (0-14) pg/ml Total Protein (6.0-8.3) gm/dl Albumin (3.4-5.0) gm/dl Globulin (2.5-4.0) gm/dl Albumin/Globulin Ratio (0.9-2) SARS-CoV-2, RNA, NAAT NEGATIVE (NEGATIVE) Blood Type Antibody Screen Administered Medications Discontinued Medications Dopamine HCl/Dextrose (Dopamine 400mg / 250ml D5w) Confirm Administered Dose 400 mg IV .STK-MED ONE Stop: 02/26/23 14:03 Last Admin: 02/26/23 14:08 Dose: Not Given Documented By: WRS Heparin Sodium/Dextrose (Heparin Iv Adult Wt-Based Low-Dose *No* Bolus Protocol) 1 each IV Q5M [facility]; Protocol Stop: 02/26/23 10:26 Last Admin: 02/26/23 15:37 Dose: 1 each Documented By: Admin: 02/26/23 15:37 Dose: 1 each Documented By: Admin: 02/26/23 14:32 Dose: 1 each Documented By: FARA Hydralazine HCl (Hydralazine Hcl 20 Mg/Ml Vial) 5 mg IV NOW ONE Stop: 02/25/23 18:34 Last Admin: 02/25/23 18:38 Dose: 5 mg Documented By: NASEEM Tenecteplase 15 mg/ Syringe 3 mls @ 36 mls/min IV NOW ONE; Protocol Stop: 02/25/23 16:53 Last Admin: 02/25/23 16:52 Dose: 36 mls/min Documented By: NASEEM Co-signed By: TIFF Heparin Sodium/Dextrose (Heparin Sodium/Dextrose) 25,000 units in 500 mls @ 12 mls/hr IV .Q24H [facility]; Protocol Stop: 03/28/23 10:14 Last Admin: 02/26/23 12:30 Dose: 600 units/hr, 12 mls/hr Documented By: JORGE Co-signed By: FARA Promethazine HCl 6.25 mg/ (Sodium Chloride) 50.25 mls @ 201 mls/hr IV NOW STA Stop: 02/26/23 13:42 Last Infusion: 02/26/23 15:38 Dose: 0 mls/hr Documented By: Admin: 02/26/23 14:40 Dose: 201 mls/hr Documented By: FARA Dopamine HCl/Dextrose (Dopamine / D5w) 400 mg in 250 mls @ 0 mls/hr IV .Q0M [facility]; Protocol Stop: 03/28/23 14:14 Last Titration: 02/26/23 14:40 Dose: 0 mcg/kg/min, 0 mls/hr Documented By: Admin: 02/26/23 14:07 Dose: 2.5 mcg/kg/min, 5.4 mls/hr Documented By: JORGE Co-signed By: FARA Ioversol (Optiray 320 500ml) 111 ml IV ONCE ONE Stop: 02/25/23 15:53 Last Admin: 02/25/23 15:55 Dose: 111 ml Documented By: RAMIN Labetalol HCl (Labetalol Hcl Iv 5 Mg/Ml 20ml) 5 mg IV NOW STA Stop: 02/25/23 18:06 Last Admin: 02/25/23 18:08 Dose: 5 mg Documented By: NASEEM Co-signed By: CHUCK Metoprolol Tartrate (Metoprolol Tartrate 1 Mg/Ml Vial) 5 mg IV NOW STA Stop: 02/25/23 16:34 Last Admin: 02/25/23 16:59 Dose: 5 mg Documented By: NASEEM Miscellaneous (Stat Iv) 1 each N/A NOW STA Stop: 02/25/23 16:43 Last Admin: 02/25/23 17:11 Dose: 1 each Documented By: NASEEM Miscellaneous (Icu Protocol For Hyperglycemia) 1 each N/A ACHS ASH Stop: 02/27/23 20:59 Last Admin: 02/26/23 15:37 Dose: Not Given Documented By: Admin: 02/26/23 15:36 Dose: Not Given Documented By: Admin: 02/25/23 23:10 Dose: 1 each Documented By: ALFONSO Sodium Chloride (Sodium Chloride 0.9% 10ml Flush) 20 ml IV NOW STA Stop: 02/25/23 16:43 Last Admin: 02/25/23 16:52 Dose: 20 ml Documented By: NASEEM Imaging Data Radiologist's Impression: Chest X-Ray 02/25/23 15:41 SINGLE VIEW CHEST CLINICAL HISTORY: Neurological deficit. Stroke like symptoms. FINDINGS: An AP, portable, upright chest radiograph is obtained. No prior studies are available for comparison at the time of dictation. The patient is status post midline sternotomy and cardiac valve surgery. The heart is enlarged noting atherosclerotic calcification of the thoracic aorta. The pulmonary vasculature is noncongested. Nonspecific interstitial thickening likely chronic. There is bibasilar scarring/atelectasis. No airspace consolidation or large pleural effusion is identified. No pneumothorax is seen. The skeletal structures are osteopenic. The bony thorax is grossly intact. IMPRESSION: Cardiomegaly with no acute cardiopulmonary abnormality identified. ACT 112: Negative or not required by law. Electronically signed by: Nathen Katz M.D. 02/25/2023 5:[address] 02/25/23 15:41 CT head/brain wo con, CT angio neck with con, CT angio head w con CLINICAL HISTORY: 72 years-old Female with neuro deficit, acute stroke suspected. Acute strokelike symptoms TECHNIQUE: Multiple axial CT images of the head were obtained without contrast. CTA had and neck was also obtained following the intravenous ministration of 111 Optiray 320. 3-D coronal and sagittal MIPS were obtained and submitted for review. All measurements were obtained according to NASCET criteria. A dose lowering technique was utilized adhering to the principles of ALARA. CT DOSE: 1047.40 mGy.cm COMPARISON: None. FINDINGS: CT HEAD: No acute intracranial hemorrhage, midline shift, intracranial mass, hydrocephalus, territorial ischemia or abnormal extra-axial collection. Involutional changes with chronic microvascular ischemic disease. The calvarium is intact. Trace mastoid effusions. Mild mucosal thickening of the paranasal sinuses. CTA HEAD AND NECK: Cardiomegaly with prior median sternotomy. Atherosclerosis of the aorta. Patency of the innominate and imaged subclavian arteries. The common carotid arteries ar e widely patent. Minimal atherosclerosis of the internal carotid arteries without significant stenosis. There is tortuosity within the distal cervical segments of the internal carotid arteries. The middle and anterior cerebral arteries appear patent. The vertebral arteries are codominant and appear widely patent. The basilar and posterior cerebral arteries are also patent. Cerebral venous sinuses are patent. There is no abnormal intracranial enhancement. No pneumothorax. Unremarkable soft tissues. Degenerative changes of the cervical spine. IMPRESSION: 1. No acute intracranial abnormality. 2. Unremarkable CTA of the head and neck. ACT 112: Negative or not required by law. The above report was generated using voice recognition software. It may contain grammatical, syntax or spelling errors. Electronically signed by: Fernando Madsen M.D. 02/25/2023 4:07 PM Head CTA 02/25/23 15:41 CT head/brain wo con, CT angio neck with con, CT angio head w con CLINICAL HISTORY: 72 years-old Female with neuro deficit, acute stroke suspected. Acute strokelike symptoms TECHNIQUE: Multiple axial CT images of the head were obtained without contrast. CTA had and neck was also obtained following the intravenous ministration of 111 Optiray 320. 3-D coronal and sagittal MIPS were obtained and submitted for review. All measurements were obtained according to NASCET criteria. A dose l owering technique was utilized adhering to the principles of ALARA. CT DOSE: 1047.40 mGy.cm COMPARISON: None. FINDINGS: CT HEAD: No acute intracranial hemorrhage, midline shift, intracranial mass, hydrocephalus, territorial ischemia or abnormal extra-axial collection. Involutional changes with chronic microvascular ischemic disease. The calvarium is intact. Trace mastoid effusions. Mild mucosal thickening of the paranasal sinuses. CTA HEAD AND NECK: Cardiomegaly with prior median sternotomy. Atherosclerosis of the aorta. Patency of the innominate and imaged subclavian arteries. The common carotid arteries are widely patent. Minimal atherosclerosis of the internal carotid arteries without significant stenosis. There is tortuosity within the distal cervical segments of the internal carotid arteries. The middle and anterior cerebral arteries appear patent. The vertebral arteries are codominant and appear widely patent. The basilar and posterior cerebral arteries are also patent. Cerebral venous sinuses are patent. There is no abnormal intracranial enhancement. No pneumothorax. Unremarkable soft tissues. Degenerative changes of the cervical spine. IMPRESSION: 1. No acute intracranial abnormality. 2. Unremarkable CTA of the head and neck. ACT 112: Negative or not required by law. The above report was generated using voice recognition software. It may contain grammatical, syntax or spelling errors. Electronically signed by: Fernando Madsen M.D. 02/25/2023 4:07 PM Neck CTA 02/25/23 15:41 CT head/brain wo con, CT angio neck with con, CT angio head w con CLINICAL HISTORY: 72 years-old Female with neuro deficit, acute stroke suspected. Acute strokelike symptoms TECHNIQUE: Multiple axial CT images of the head were obtained without contrast. CTA had and neck was also obtained following the intravenous ministration of 111 Optiray 320. 3-D coronal and sagittal MIPS were obtained and submitted for review. All measurements were obtained according to NASCET criteria. A dose lowering technique was utilized adhering to the principles of ALARA. CT DOSE: 1047.40 mGy.cm COMPARISON: None. FINDINGS: CT HEAD: No acute intracranial hemorrhage, midline shift, intracranial mass, hydrocephalus, territorial ischemia or abnormal extra-axial collection. Involutional changes with chronic microvascular ischemic disease. The calvarium is intact. Trace mastoid effusions. Mild mucosal thickening of the paranasal sinuses. CTA HEAD AND NECK: Cardiomegaly with prior median sternotomy. Atherosclerosis of the aorta. Patency of the innominate and imaged subclavian arteries. The common carotid arteries are widely patent. Minimal atherosclerosis of the internal carotid arteries without significant stenosis. There is tortuosity within the distal cervical segments of the internal carotid arteries. The middle and anterior cerebral arteries appear patent. The vertebral arteries are codominant and appear widely patent. The basilar and posterior cerebral arteries are also patent. Cerebral venous sinuses are patent. There is no abnormal intracranial enhancement. No pneumothorax. Unremarkable soft tissues. Degenerative changes of the cervical spine. IMPRESSION: 1. No acute intracranial abnormality. 2. Unremarkable CTA of the head and neck. ACT 112: Negative or not required by law. The above report was generated using voice recognition software. It may contain grammatical, syntax or spelling errors. Electronically signed by: Fernando Madsen M.D. 02/25/2023 4:07 PM Discharge Plan Visit Data Chief Complaint: TIA Symptoms Stated Complaint: STROKE, TIA SYMPTOMS ED Provider: Christi Noland ED Midlevel Provider: Nathen Obregon Discharge Problem: Acute cerebrovascular accident (CVA), Mechanical heart valve present, Chronic anticoagulation, Atrial fibrillation by electrocardiogram Patient Disposition: Admitted As Inpatient Condition: Critical Discharge Instructions Interventions: ED Discharge Assessment Last Done: 02/25/23 19:45
[2023-02-25] MEDS ORDERED: PHARMACIST DISCHARGE MED REC CONSULT PRN (19:52)
--- NOTE | 2023-02-25 20:39 | Critical Care Consultation ---
Date of Consultation February 25, 2023 Assessment & Plan (1) Stroke-like symptoms: Patient initially presented with dysarthria and left facial droop. No other neurological symptoms reported. -Evaluated by [facility] and TNKase administered in the emergency department at 1652. Patient now presenting to the ICU without any neurological deficits. - CTA head and neck, CT Noncon negative for acute intracranial findings - Patient chronically anticoagulated on CoumadinLike medication from [place], INR subtherapeutic at 1.7.Hold further anticoagulationAnd aspirin for now following TNKase administration - Follow-up MRI and echo results -Follow-up lipid panel and hemoglobin A1c - Follow-up neurology recommendations regarding ASA, Plavix -Monitor in ICU for 24-hour post TNKase protocol and follow-up 24-hour CT head (2) Atrial fibrillation: No prior history and noted in the emergency department to have atrial fibrillation with heart rates in the low 100s. Possible source of stroke? - We will follow-up echo to evaluate for atrial clot - Currently rate controlled with heart rates 80s to 90s. Did receive 1 dose IV metoprolol in the ED. Will control with beta-minerva if needed - Anticoagulated on Coumadin equivalent for artificial valve. We will hold following TNKase - Continuous monitoring on telemetry. Follow-up EKG in a.m. (3) Mechanical heart valve present: No issues at this time. Chronically anticoagulated with equivalent of Coumadin.Holding for 24 hours following TNKase administration. (4) Chronic anticoagulation: Holding for 24 hours following TNKase administration. (5) Elevated troponin: Patient with EKG with atrial fibrillation and mild tachycardia. Likely demand ischemia. No ST elevations on EKG. Troponin 300, will trend. Patient is chronically anticoagulated although she was found to be subtherapeutic with an INR of 1.7. She has received TNKase. Monitor for now History of Present Illness Attending Physician: Jessica Gill MD History of Present Illness Patient is a 72-year-old female with a past medical history of hypertension, and manic mechanical valve replacement in 2000 who presented to the emergency department with strokelike symptoms. Patient is from [place], and speaks Artemio. Patient reported that she was riding in her car with her [id number] this afternoon when she noticed right facial droop and drooling and was having difficulty speaking. Patient presented to the emergency department 15 minutes later and stroke alert was initiated. She went for CT head Noncon, CTA head and neck which were negative. She was evaluated by [facility] telestroke and was determined to be candidate for lysis. She was given TNKase at 1652 and now presents to the ICU for 24-hour monitoring protocol. On arrival to the ICU the patient is alert and oriented and now asymptomatic without facial droop or dysarthria. Patient denies any headache, dizziness, changes in vision, numbness or tingling, changes in gait, weakness, or pain. She denies recent illness or fevers, congestion, shortness of breath, chest pain or palpitations, abdominal pain, nausea vomiting or diarrhea, swelling in hands or feet, changes in urinary frequency. We are awaiting MRI and echo. Patient remained in ICU for further management at this time. Allergies Allergy/AdvReac Type Severity Reaction Status Date / Time No Known Allergies Allergy Verified 02/25/23 16:22 Home Medications Medication Instructions Recorded Confirmed Type Acenocoumarol 0.5 mg PO DAILY 02/25/23 02/25/23 History Spironlactone + Frusemide 1 tab PO DAILY 02/25/23 02/25/23 History aspirin 81 mg tablet,delayed 81 mg PO DAILY 02/25/23 02/25/23 History release carvedilol 12.5 mg tablet 12.5 mg PO BID 02/25/23 02/25/23 History Patient History Medical History Chronic anticoagulation Surgical History Mechanical heart valve present Family History Mother , of a stroke at age 65 Stroke Father , age 60 from throat cancer Cancer Social History Smoking Status: Never smoker Do You Dip or Chew Tobacco: No; Hx Alcohol Use: No Hx Substance Use: No Preferred Language: Josep Communication Ability: Impaired Communication Tools: IPad Underground Supervisor Required: Yes Beliefs That Will Affect Care: None Current Living Situation: Spouse Current Living Situation Comment: home with current occupational status: unemployed Other Information That Helps Us Care for You: No Feels Safe at Home: Yes Safety Concerns: Feels Safe At This Time Assistive Devices: None Review of Systems Review of Systems: All systems reviewed & are unremarkable except as noted in HPI & below Physical Exam Constitutional: WD/WN, vitals as above Eyes: PERRL, conjunctivae normal, anicteric sclerae ENMT: external ear and nose normal, oropharynx normal Neck: trachea midline, no thyromegaly Respiratory: normal respiratory effort, lungs clear to auscultation Cardiovascular: RRR, no murmur, no edema Heart Sounds: + click; no murmur Extremities: no edema Gastrointestinal (Abdomen): normal bowel sounds, soft, nontender, no hepatosplenomegaly Musculoskeletal: no cyanosis or clubbing, extremities motor strength 5/5 Skin: no rashes, warm and dry Neurologic: PERRL, EOMI, accommodation nl, no face palsy, no dysarthria CN's II-XI intact bilaterally Speech / Cognition: no expressive aphasia and no receptive aphasia Motor/Sensory: no tremor Psychiatric: A+Ox3, euthymic affect Results & Data Results & Data Vital Signs (Past 12 Hours) Vital Signs Temp Pulse Pulse Resp BP BP Pulse Ox 02/25/23 19:45 02/25/23 19:23 86 20 143/78 H 98 02/25/23 19:03 37.0 C 82 19 125/72 96 02/25/23 18:45 92 H 16 122/89 95 02/25/23 18:30 87 17 179/118 H 95 02/25/23 18:15 79 16 167/109 H 96 02/25/23 18:00 76 17 184/121 H 97 02/25/23 17:30 36.8 C 81 17 145/91 H 98 02/25/23 17:19 81 20 134/95 98 02/25/23 17:15 98 H 16 141/106 H 98 02/25/23 17:00 84 16 155/92 H 96 02/25/23 16:59 97 H 152/105 H 02/25/23 16:44 97 H 18 159/93 H 96 02/25/23 16:18 102 H 02/25/23 16:08 106 H 22 156/106 H 96 02/25/23 15:26 36.6 C 106 H 18 155/103 H 99 O2 Del Method 02/25/23 19:45 Room Air 02/25/23 19:23 Room Air 02/25/23 19:03 Room Air 02/25/23 18:45 Room Air 02/25/23 18:30 Room Air 02/25/23 18:15 Room Air 02/25/23 18:00 Room Air 02/25/23 17:30 Room Air 02/25/23 17:19 Room Air 02/25/23 17:15 Room Air 02/25/23 17:00 Room Air 02/25/23 16:59 02/25/23 16:44 Room Air 02/25/23 16:18 02/25/23 16:08 Room Air 02/25/23 15:26 Room Air Coding Level of Care Code 35306 IN/OBS CONSULT LVL 4,60M Diagnoses Stroke-like symptoms R29.90 Atrial fibrillation I48.91 Mechanical heart valve present Z95.2 Chronic anticoagulation Z79.01 Elevated troponin R77.8 Time Spent (min) 67
[2023-02-25] MEDS: ICU Protocol for HYPERglycemia SCH (23:10)
[2023-02-26 02:19] LABS: Hematocrit (blood only) 38.3 % (37.0-47.0); Hemoglobin 12.8 g/dl (12.0-16.0); Mean Corpuscular Hemoglobin 31.1 pg (25.0-34.0); Mean Corpuscular Hgb Conc 33.4 g/dL (32.0-36.0); Mean Corpuscular Volume 93.2 fL (80.0-100.0); Mean Platelet Volume 10.3 fL (9.4-12.4); Platelet Count 215 K/uL (130-400); RDW Coefficient of Variation 14.1 % (11.5-14.5); RDW Standard Deviation 48.1 fL (36.4-46.3); Red Blood Count 4.11 M/uL (4.20-5.40); White Blood Count 10.37 K/ul (4.8-10.8)
[2023-02-26 02:37] LABS: BUN Creatinine Ratio 18.8 (10-20); Calcium 9.1 mg/dl (8.6-10.3); Chol HDL Ratio 4.8 (0-5); Creatinine Clr Calc Pharmacy 49.3 ml/min; Est GFR (African American) 86.6 ml/min; Est GFR (Non-African American) 74.7 ml/min; Potassium 4.8 mmol/L (3.5-5.1)
[2023-02-26 02:52] LABS: Thyroid Stimulating Hormone 8.331 uIu/ml (0.300-4.500)
[2023-02-26 03:27] LABS: T4 Free Thyroxine 0.77 ng/dl (0.61-1.60)
[2023-02-26 04:02] LABS: Magnesium 2.1 mg/dl (1.7-2.4); Phosphorus 3.7 mg/dl (2.5-4.9)
--- NOTE | 2023-02-26 08:43 | Hospitalist Progress Note ---
Date of Service February 26, 2023 Assessment & Plan (1) Dysarthria due to acute cerebrovascular accident (CVA): (2) Facial weakness due to acute cerebrovascular disease: Plan: Patient is 72 y/o F with PMH mechanical valve replacement in 2000 in [place], on chronic anticoagulation presented to ER with her son with c/o dysarthria prior to arrival. Speaks Artemio, gujarati. Last anticoagulate taken yesterday evening. In ER noted dysphagia and right sided facial droop. Stroke alert. Patient was given TNK. During ER course right facial droop and dysarthria have resolved. Hypertensive in ER and given labetalol and hydralazine CT Head: No acute intracranial abnormality CTA Head, Neck: No acute intracranial abnormality. Unremarkable CTA of the head and neck. CXR: Cardiomegaly with no acute cardiopulmonary abnormality identified. Admit ICU for observation after TNK MRI brain if able to confirm mechanical valve info. Son is trying to find more info. The MRI department reached out to the family and consumer science professor, however family and consumer science professor was unable to look up information on this since this was done outside of the [place]. MRI on hold until further information can be obtained 02/26-She has new onset atrial fibrillation and a h/o cardiomyopathy in the past with repeat echo this admission consistent with that (EF 25%) The etiology is unclear. She was started on heparin today out of concern for high risk of thromboembolism (apixaban contraindicated, plan to resume coumadin once more stable from hemodynamic perspective) She has been experiencing pauses on the monitor and has also had intermittent nausea and vomiting that began this morning. (3) Atrial fibrillation: Plan: evidently this is chronic and she was managed on coumadin with INR 1.4 on admission Heparin drip as above. She has been experiencing bradycardia with pauses and a trial of dopamine was initiated today but this made her tachycardic and was stopped. (4) Elevated troponin: Plan: High-sensitivity troponin: 306. Denies chest pain May be demand ischemia from atrial fibrillation RVR in the setting of severe diffuse cardiomyopathy cont to follow cardiology recommendations for workup (5) Mechanical heart valve present: Plan: heparin drip now, transition to coumadin once she is more stable. (6) Bradycardia: Plan: symptomatic bradycardia (7) Cardiomyopathy: Plan: chronic, unclear etiology as she lives in [facility] and is cared for there. Reports to be on coreg, spironolactone and lasix, all currently on hold. Heparin drip Full Code Dispo- remains in ICU care for now with symptomatic bradycardia I spent a total of 60 minutes coordinating, documenting, and providing care for this patient excluding time spent in the performance of separately billed services DO Karthik [facility] Hospitalist Admission and Anticipated Discharge Date Admission Date: February 25, 2023 Subjective 72 yo F gujrati speaking female presented with acute stroke s/p TNkinase. Resolution of right facial droop and dysarthria Today she has been having pauses on telemetry and some tachy-chanelle phenomena This may be contributing to her nausea with some dry heaving. after phenergan she denies any nausea at this time but has not eaten anything because it has made her sick denies headache and she is oriented and following instructions. Family preferred to interpret with patient. intermittent numbness on the anterior lower right leg that is not currently present. Review of Systems Review of Systems: All systems were reviewed and negative except as indicated on subjective above. Physical Exam Physical Exam: CONSTITUTIONAL: WNWD, vitals as above, ill appearing EYES: EOMI bilaterally, PERRL, normal conjucctivae, no scleral icterus ENT: external ear and nose normal, oropharynx clear, MMM NECK: trachea midline RESPIRATORY: clear to auscultation bilaterally, no crackles, rales or wheezes, normal respiratory effort CARDIOVASCULAR: regular rate and rhythm, S1 and 2 heard without murmurs, gallops or rubs, no JVD, no peripheral edema CHEST: inspection of chest was normal GASTROINTESTINAL: soft, nontender, ND, no guarding MUSCULOSKELETAL: strength 5/5 throughout, head is normocephalic and atraumatic, SKIN: warm and dry NEUROLOGIC: CN 2-12 grossly intact, no sensory deficit, normal cognition, normal speech, no tremor PSYCHIATRIC: alert cooperative and oriented to person, place and time. Results & Data Results & Data Vital Signs (Past 12 Hours) Vital Signs Pulse Pulse Resp BP BP Pulse Ox O2 Del Method 02/26/23 07:30 94 H 24 137/91 97 Room Air 02/26/23 07:19 95 H 02/26/23 06:31 93 H 19 95 02/26/23 06:31 129/65 02/26/23 06:30 86 18 95 02/26/23 06:15 93 H 18 96 02/26/23 06:00 82 19 02/26/23 06:00 111/71 02/26/23 05:31 91 H 18 94 02/26/23 05:31 109/72 02/26/23 05:30 93 H 17 94 02/26/23 05:01 88 15 99 02/26/23 05:01 128/77 02/26/23 05:00 91 H 15 02/26/23 04:40 86 17 95 02/26/23 04:30 91 H 20 02/26/23 04:30 135/81 02/26/23 04:20 91 H 21 93 02/26/23 04:10 100 H 28 H 94 02/26/23 04:00 87 18 95 02/26/23 04:00 130/78 02/26/23 03:50 93 H 21 94 02/26/23 03:40 103 H 19 94 02/26/23 03:31 89 20 94 02/26/23 03:31 114/76 02/26/23 03:30 87 24 02/26/23 03:20 88 19 94 02/26/23 03:10 91 H 19 94 02/26/23 03:00 96 H 21 02/26/23 03:00 124/80 02/26/23 02:50 93 H 26 H 97 02/26/23 02:40 44 L 20 98 02/26/23 02:30 94 H 12 02/26/23 02:30 117/72 02/26/23 02:20 90 23 93 02/26/23 02:10 88 8 L 97 02/26/23 02:01 127/68 02/26/23 02:01 102 H 20 92 02/26/23 02:00 93 H 16 02/26/23 01:50 91 H 18 93 02/26/23 01:40 92 H 15 96 02/26/23 01:30 88 22 94 02/26/23 01:30 113/81 02/26/23 01:20 90 19 94 02/26/23 01:10 84 12 97 02/26/23 01:00 86 16 02/26/23 01:00 110/88 02/26/23 00:50 98 H 19 96 02/26/23 00:45 89 21 94 02/26/23 00:30 96 H 19 92 02/26/23 00:30 122/75 02/26/23 00:15 91 H 22 95 02/26/23 00:00 85 19 98 02/26/23 00:00 120/76 02/26/23 00:00 120/76 02/25/23 23:45 85 18 99 02/25/23 23:40 85 20 98 02/25/23 23:40 106/71 02/25/23 23:40 106/71 02/25/23 23:30 90 19 98 02/25/23 23:15 92 H 19 97 02/25/23 23:00 88 21 95 02/25/23 23:00 118/84 02/25/23 22:45 93 H 19 96 02/26/23 00:00 97 H 02/25/23 22:30 81 18 02/25/23 22:30 119/80 02/25/23 22:15 92 H 17 95 02/25/23 22:00 89 18 92 02/25/23 22:00 102/69 02/25/23 21:55 120/67 02/25/23 21:55 95 H 14 95 02/25/23 21:50 90 19 94 02/25/23 21:50 117/70 02/25/23 21:50 117/70 02/25/23 21:45 96 H 17 92 02/25/23 21:45 101/66 02/25/23 21:40 119/68 02/25/23 21:40 84 18 02/25/23 21:36 93 H 20 96 02/25/23 21:36 109/82 02/25/23 21:30 93 H 19 02/25/23 21:30 122/73 02/25/23 21:26 101 H 17 95 02/25/23 21:26 125/74 02/25/23 21:21 97 H 18 96 02/25/23 21:21 130/60 02/25/23 21:16 139/104 H 02/25/23 21:16 96 H 19 02/25/23 21:15 93 H 20 02/25/23 21:10 90 22 95 02/25/23 21:10 138/86 02/25/23 21:10 138/86 02/25/23 21:05 133/79 02/25/23 21:05 92 H 20 02/25/23 21:01 90 22 97 02/25/23 21:01 122/83 02/25/23 21:00 92 H 23 02/25/23 20:55 143/79 H 02/25/23 20:55 88 21 95 02/25/23 20:51 97 H 24 98 02/25/23 20:51 119/83 02/25/23 20:45 90 16 02/25/23 20:45 137/86 Laboratory Results Short CBC 02/25/23 02/26/23 Range/Units 15:44 02:02 WBC 6.81 10.37 (4.8-10.8) K/ul Hgb 12.9 12.8 (12.0-16.0) g/dl Hct 38.4 38.3 (37.0-47.0) % Plt Count 235 215 (130-400) K/uL BMP 02/25/23 02/26/23 15:44 02:02 Sodium 135 L 135 L Potassium 4.7 4.8 Chloride 103 104 Carbon Dioxide 24 23 BUN 19 15 Creatinine 0.91 0.80 Glucose 131 H 100 H Calcium 9.3 9.1 Liver Function 02/25/23 Range/Units 15:44 Total Bilirubin 0.6 (0.2-1.0) mg/dl AST 35 (13-39) U/L ALT 15 (7-52) U/L Alkaline Phosphatase 85 (34-104) U/L Albumin 4.3 (3.4-5.0) gm/dl Medications Administered Current Inpatient Medications Aspirin (No Aspirin Within 24hrs Of Thrombolytic-Stroke) 1 each PO UD ASH Stop: 02/26/23 16:44 Miscellaneous (Icu Protocol For Hyperglycemia) 1 each N/A ACHS ASH Stop: 02/27/23 20:59 Last Admin: 02/25/23 23:10 Dose: 1 each Miscellaneous Information (Pharmacist Discharge Med Rec Consult) 1 each N/A UD PRN PRN Reason: Consult Stop: 03/27/23 19:51
--- NOTE | 2023-02-26 09:47 | Neurology Consultation ---
Date of Consultation February 26, 2023 Assessment & Plan (1) Facial weakness due to acute cerebrovascular disease: (2) Dysarthria due to acute cerebrovascular accident (CVA): (3) Hypertension: (4) Atrial fibrillation: (5) Dyslipidemia: (6) Mechanical heart valve present: (7) Elevated TSH: Plan this patient had the acute onset of stroke-like symptoms including right facial droop and speech problems (sounds like a combination of dysarthria and word- finding difficulties -expressive aphasia) the afternoon of February 25. She was given TNKase in the ER and her symptoms quickly resolved thereafter. Today she is largely asymptomatic with no residual deficits on examination, f ocal findings, meningeal signs, or obvious encephalopathy. CT scan of the head and CT angiography of the head and neck were unremarkable. Patient has a mechanical valve and we are uncertain if she can get an MRI of the brain. She does have a history of being on some sort of "Coumadin variant" but her INR was only 1.7 when she came to the emergency room. She was discovered to be in atrial fibrillation and had hypertension. Her blood pressure is a little better controlled this morning. Patient has an elevated total cholesterol and TSH. without an MRI, I cannot be certain that the patient did not have a small stroke versus a TIA ( with or without medication). also, I cannot be certain the extent of small vessel ischemia that could be present. I suspect an embolic event based on her medical issues and history but ischemic cannot be excluded. Recommendations: 1. I would like to get an MRI of the brain but we would have to find out what sort of mechanical valve this patient has , to make sure if it is MRI safe. 2. For now, I would continue with 81 mg aspirin (once the 24 hour post TNKase window has passed) and an anticoagulant such as Eliquis ( I spoke with Dr. Chapman regarding this ), instead of her other medication given to her in [place]. 3. The patient would be a high dose statin candidate, but a regular dose would be reasonable. 4. Control blood pressure as you are doing, aiming for a mean arterial pressure of 95-100. 5. Awaiting echocardiogram results. 6. Follow-up with elevated TSH -I will leave this to primary care. 7. She will likely need a primary care doctor here in [facility] while she is visiting 8. Follow-up CT scan of the head at 24 hours post thrombolytic, per protocol. Overall, I spent a total of 90 minutes with this case including review of records, review of CT films, report generation, direct evaluation the patient at bedside, discussion of the case with the patient and her [id number] at bedside, RN at bedside, Dr. Chapman at bedside, and Dr. Ann, including differential diagnosis and treatment options. History of Present Illness Reason for Consultation: Patient is a 72-year-old, was asked to see at the request of Nelly Norman PA-C, for neurologic consultation regarding possible stroke, post TNK Requesting Physician: Chucho Calvert Attending Physician: Marija Ann, DO History of Present Illness this patient lives in [facility] and in 2000 had a Medtr[employer] mechanical heart valve placed ( uncertain which valve and unknown type/ serial #). She is on some sort of Coumadin derivative (acenocoumaral), 81 mg aspirin spironolactone, furosemide, and carvedilol 12.5 mg. she denies a history of hypertension, diabetes, previous stroke, or other heart conditions ( including heart rhythm issues ). She is visiting for 5 or 6 months in the [place] area ( her son and [id number]) staying another 5 months. She was riding in the car yesterday afternoon when he felt a little sleepy and then suddenly had decreased ability to speak and had a right facial droop. She remembers no pain or headache. She had no vision issues or any symptoms in her arms or legs. She was taken immediately to the emergency room and arrived at 3:26 p.m. Blood pressure was 155/103, temperature 36.6, pulse 106, respiratory rate 18, and O2 saturation 99%. She was noted to be in atrial fibrillation. Laboratory studies revealed a normal CBC and Chem profile although the glucose was 130. Troponin was elevated at 3 of 6 and INR was 1.7. After consultation with Joselin ryan, it was decided that she could be given TNKase, which she received at 4:52 p.m.. In the ER she had a right facial droop some trouble forming words. After the medication was given, she resolved her symptoms and has had no further issues with speech or facial droop. Chest x-ray showed cardiomegaly. CT scan of the head was unremarkable. CT angiography of the head neck were unremarkable as well with no significant vascular anomalies or stenosis. I reviewed these films. This morning CBC and Chem profile were unremarkable. Troponin was down to 206. triglycerides were 120 and total cholesterol 249. TSH was elevated at 8 She has no pain or weakness this morning, vision issues, headaches, weakness, numbness, or dizziness. Allergies Allergy/AdvReac Type Severity Reaction Status Date / Time No Known Allergies Allergy Verified 02/25/23 16:22 Home Medications Medication Instructions Recorded Confirmed Type Acenocoumarol 0.5 mg PO DAILY 02/25/23 02/25/23 History Spironlactone + Frusemide 1 tab PO DAILY 02/25/23 02/25/23 History aspirin 81 mg tablet,delayed 81 mg PO DAILY 02/25/23 02/25/23 History release carvedilol 12.5 mg tablet 12.5 mg PO BID 02/25/23 02/25/23 History Patient History Medical History Chronic anticoagulation Surgical History Mechanical heart valve present Family History Mother , of a stroke at age 65 Stroke Father , age 60 from throat cancer Cancer Social History Smoking Status: Never smoker Hx Alcohol Use: No Hx Substance Use: No Preferred Language: Josep Communication Ability: Impaired Communication Tools: IPad Spark Plug 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 Required: Yes Beliefs That Will Affect Care: None Current Living Situation: Spouse Current Living Situation Comment: home with current occupational status: unemployed Feels Safe at Home: Yes Assistive Devices: None Review of Systems Review of Systems: review of systems was difficult because she does not speak Spanish although I had excellent translation with her [id number] and she does not seem to have any issues currently Constitutional: no fever, no fatigue and no weakness Eyes: no diplopia, no eye pain and no worsening vision Ear, Nose, Mouth, Throat: no ear pain, no tinnitus, no hearing loss, no dizziness, no snoring, no hoarseness and no dysphagia Respiratory: no cough and no dyspnea Cardiovascular: no chest pain, no palpitations and no lightheadedness Gastrointestinal: no abdominal pain, no nausea and no vomiting Genitourinary: no dysuria, no urinary frequency and no urinary incontinence Musculoskeletal: no back pain, no neck pain, no radicular pain, no joint pain and no myalgia Integumentary: no rash and no lesions Neurologic: no gait abnormality, no localized weakness, no generalized weakness, no tingling, no numbness, no tremor(s), no abnormal movements, no headache(s), no abnormal speech, no confusion and no memory loss Psychiatric: no depression, no irritability, no anxiety, no difficulty concentrating, no confusion and no hallucinations Endocrine: no fatigue and no flushing Hematologic / Lymphatic: no easy bleeding and no easy bruising Allergy / Immunological: no urticaria and no problem reported Exam (Neuro) Physical Exam: The patient is right-handed. The patient is awake, alert, and attentive. Speech is normal without any aphasia or dysarthria, according to the patient's [id number] , who was present in the room. The patient speaks no Spanish for me to verify. The patient can name objects, repeat phrases, and has normal spontaneous speech. Mentation and thought processes are intact, with orientation to person, place and time, and normal fund of knowledge. Attention and concentration are normal. Mood and affect are normal and appropriate. General appearance and grooming are normal. Short and long-term memory are intact as far as I can tell via translation. The discs are sharp with positive venous pulsations bilaterally. There are no exudates, hemorrhages, or blood vessel changes seen. Pupils are 4 mm bilaterally and reactive to light. Very mild cataract formations bilaterally. Extraocular eye muscles are intact without nystagmus. Visual acuity and visual joy seem normal grossly to confrontation. There are no deficits to sensation in the face in all 3 distributions of the fifth cranial nerve bilaterally. Corneal reflexes are positive bilaterally. Facial strength and symmetry was normal bilaterally. Hearing seems normal bilaterally. Palate moves well without asymmetry. There is normal sternocleidomastoid and trapezius (shoulder shrug) strength bilaterally. Tongue is midline with good strength bilaterally. Neck has a full range of motion without discomfort. There are no cervical bruits bilaterally. There are no cranial or ocular bruits. Heart is without murmur. There is a regular rhythm and rate. Cervical, thoracic, and lumbar spine are nontender to palpation. Gait Is not tested as she is not yet 24 hours after the trauma lytic. Stance sitting up in bed is quite normal. With outstretched arms there is no drift. There are no resting, postural, or action tremors. There is no ataxia with finger to nose testing. There is good facility in the hands. No other abnormal involuntary movements are noted. Motor strength is 5/5 diffusely in the arms bilaterally including deltoids, biceps, triceps, brachioradialis, wrist flexors and extensors, advanced developer, and intrinsic hand muscles. Motor strength is 5/5 diffusely in the legs bilaterally including hip flexors, quadriceps, hamstrings, gastrocnemius, tibialis anterior, tibialis posterior, and Peroneii muscles. Toe extensors are normal and there is good bulk in the extensor digitorum brevis muscles bilaterally. The limbs have good tone without rigidity or spasticity. There is no atrophy noted in the muscles. Muscle bulk is normal, there is no tenderness to palpation, no myotonia to percussion, and no fasciculations seen. Sensory examination is intact to touch and pin throughout all 4 limbs diffusely. Reflexes are 1/4 in the biceps, triceps, brachioradialis, quadriceps, and Achilles tendons bilaterally. There is no clonus bilaterally. Toes are downgoing with plantar stimulation bilaterally. Peripheral pulses are present and of normal quality distally in all 4 limbs. There is no peripheral edema noted in the limbs. Results & Data Vital Signs (Past 12 Hours) Vital Signs Pulse Pulse Resp BP BP Pulse Ox O2 Del Method 02/26/23 08:30 92 H 23 136/110 H 96 Room Air 02/26/23 07:30 94 H 24 137/91 97 Room Air 02/26/23 07:19 95 H 02/26/23 06:31 93 H 19 95 02/26/23 06:31 129/65 02/26/23 06:30 86 18 95 02/26/23 06:15 93 H 18 96 02/26/23 06:00 82 19 02/26/23 06:00 111/71 02/26/23 05:31 91 H 18 94 02/26/23 05:31 109/72 02/26/23 05:30 93 H 17 94 02/26/23 05:01 88 15 99 02/26/23 05:01 128/77 02/26/23 05:00 91 H 15 02/26/23 04:40 86 17 95 02/26/23 04:30 91 H 20 02/26/23 04:30 135/81 02/26/23 04:20 91 H 21 93 02/26/23 04:10 100 H 28 H 94 02/26/23 04:00 87 18 95 02/26/23 04:00 130/78 02/26/23 03:50 93 H 21 94 04 03:40 103 H 19 94 04 03:31 89 20 94 02/26/23 03:31 114/76 02/26/23 03:30 87 24 02/26/23 03:20 88 19 94 02/26/23 03:10 91 H 19 94 02/26/23 03:00 96 H 21 02/26/23 03:00 124/80 02/26/23 02:50 93 H 26 H 97 02/26/23 02:40 44 L 20 98 02/26/23 02:30 94 H 12 02/26/23 02:30 117/72 02/26/23 02:20 90 23 93 02/26/23 02:10 88 8 L 97 02/26/23 02:01 127/68 02/26/23 02:01 102 H 20 92 02/26/23 02:00 93 H 16 02/26/23 01:50 91 H 18 93 02/26/23 01:40 92 H 15 96 02/26/23 01:30 88 22 94 02/26/23 01:30 113/81 02/26/23 01:20 90 19 94 02/26/23 01:10 84 12 97 02/26/23 01:00 86 16 02/26/23 01:00 110/88 02/26/23 00:50 98 H 19 96 02/26/23 00:45 89 21 94 02/26/23 00:30 96 H 19 92 02/26/23 00:30 122/75 02/26/23 00:15 91 H 22 95 02/26/23 00:00 85 19 98 04 00:00 120/76 02/26/23 00:00 120/76 02/25/23 23:45 85 18 99 02/25/23 23:40 85 20 98 02/25/23 23:40 106/71 02/25/23 23:40 106/71 02/25/23 23:30 90 19 98 02/25/23 23:15 92 H 19 97 02/25/23 23:00 88 21 95 02/25/23 23:00 118/84 02/25/23 22:45 93 H 19 96 02/26/23 00:00 97 H 02/25/23 22:30 81 18 02/25/23 22:30 119/80 02/25/23 22:15 92 H 17 95 02/25/23 22:00 89 18 92 02/25/23 22:00 102/69 02/25/23 21:55 120/67 02/25/23 21:55 95 H 14 95 02/25/23 21:50 90 19 94 02/25/23 21:50 117/70 02/25/23 21:50 117/70 02/25/23 21:45 96 H 17 92 02/25/23 21:45 101/66 02/25/23 21:40 119/68 02/25/23 21:40 84 18 02/25/23 21:36 93 H 20 96 02/25/23 21:36 109/82 02/25/23 21:30 93 H 19 02/25/23 21:30 122/73 02/25/23 21:26 101 H 17 95 02/25/23 21:26 125/74 02/25/23 21:21 97 H 18 96 02/25/23 21:21 130/60 PG Care Time/CCT Total # of Minutes Spent Total Time Spent with Patient: Total time spent is greater than 50% in coordination of care (as documented) at patient's floor/unit and/or counseling patient: Coding Level of Care Code 49324 INT INP/OBS CARE 3/75MIN Diagnoses Facial weakness due to acute cerebrovascular disease I69.992 Dysarthria due to acute cerebrovascular accident (CVA) I63.9; R47.1 Hypertension I10 Atrial fibrillation I48.91 Dyslipidemia E78.5 Mechanical heart valve present Z95.2 Elevated TSH R79.89 Time Spent (min) 90
[2023-02-26] MEDS ORDERED: HEPARIN SODIUM/DEXTROSE 25,000 UNITS/500 ML BAG IV SCH (10:15)
[2023-02-26 10:30] LABS: Estimated Average Glucose 120 mg/dl; Hemoglobin A1C 5.8 % (4.5-5.6)
--- NOTE | 2023-02-26 12:23 | Cardiology Consultation ---
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 Ann Attending Physician: Marija Ann, DO History of Present Illness Patient is a 72-year-old female visiting the area from [place]. She does not speak [place]ian but family members were able to translate patient's concerns and questions at her request Declining translator/interpreter service [id number] provides recent history. She was also able to provide additional information including recent echocardiogram from [place] 1. Mechanical mitral valve replacement 2000, [employer]tr[employer] device on chronic anticoagulation with acenocoumarol 2. LV dysfunction uncertain etiology with echocardiogram demonstrating moderate to severe LV dysfunction EF 25% Per discussions with family members yesterday patient nauseated with episode emesis in the morning and after lunch. Was able to eat evening meal without difficulty but while riding in a car developed sudden change in mental status, dysarthria and facial droop. She presented nearly immediately to the emergency room less than 15 minutes of onset of complaints and was treated via stroke alert with TNK INR subtherapeutic on presentation Patient had prompt resolve of neurologic complaints Denies any specific complaints currently at time of examination but nursing staff notes episodes of emesis and nausea Atrial fibrillation observed on presentation of uncertain duration patient unaware of prior history of arrhythmias No bleeding difficult No fevers chills or unexplained infections Family reaching out to cardiology in [facility] regarding prior history. Patient contacted family friend who is a laundry laborer and through telephone encounter with myself was able to explain indications for treatment including anticoagulation Allergies Allergy/AdvReac Type Severity Reaction Status Date / Time No Known Allergies Allergy Verified 02/25/23 16:22 Home Medications Medication Instructions Recorded Confirmed Type Acenocoumarol 0.5 mg PO DAILY 02/25/23 02/25/23 History Spironlactone + Frusemide 1 tab PO DAILY 02/25/23 02/25/23 History aspirin 81 mg tablet,delayed 81 mg PO DAILY 02/25/23 02/25/23 History release carvedilol 12.5 mg tablet 12.5 mg PO BID 02/25/23 02/25/23 History Patient History Medical History Chronic anticoagulation Surgical History Mechanical heart valve present Family History Mother , of a stroke at age 65 Stroke Father , age 60 from throat cancer Cancer Social History Smoking Status: Never smoker Do You Dip or Chew Tobacco: No; Hx Alcohol Use: No Hx Substance Use: No Preferred Language: Ana Mrati Communication Ability: Impaired Communication Tools: IPad 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 Arts 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: Yes Beliefs That Will Affect Care: None Current Living Situation: Spouse Current Living Situation Comment: home with current occupational status: unemployed Other Information That Helps Us Care for You: No Feels Safe at Home: Yes Safety Concerns: Feels Safe At This Time Assistive Devices: None Review of Systems Review of Systems: All systems reviewed & are unremarkable except as noted in HPI & below Physical Exam Constitutional: well developed and well nourished; no acute distress Eyes: PERRL, conjunctivae normal, anicteric sclerae ENMT: external ear and nose normal, oropharynx normal Neck: trachea midline, no thyromegaly Respiratory: normal respiratory effort Cardiovascular: Rate/Rhythm: + irregularly irregular Vessels: no JVD Extremities: no edema [place] mechanical valve sounds audible. Gastrointestinal (Abdomen): Percussion/Palpation: abdomen soft; no guarding and no hepatosplenomegaly Musculoskeletal: no cyanosis or clubbing, extremities motor strength 5/5 Neurologic: PERRL, EOMI, accommodation nl, no face palsy, no dysarthria Results & Data Vital Signs (Past 12 Hours) Vital Signs Pulse Pulse Resp BP BP Pulse Ox O2 Del Method 02/26/23 09:02 105 H 23 98 02/26/23 09:02 138/90 02/26/23 09:00 94 H 19 02/26/23 08:37 91 H 34 H 95 02/26/23 08:37 136/110 H 02/26/23 08:30 93 H 31 H 98 02/26/23 08:01 100 H 18 94 02/26/23 08:01 126/85 02/26/23 08:00 90 22 02/26/23 07:36 137/91 02/26/23 07:36 88 16 97 02/26/23 07:30 93 H 18 98 02/26/23 07:00 92 H 21 02/26/23 07:00 112/81 02/26/23 08:30 92 H 23 136/110 H 96 Room Air 02/26/23 07:30 94 H 24 137/91 97 Room Air 02/26/23 07:19 95 H 02/26/23 06:31 93 H 19 95 02/26/23 06:31 129/65 02/26/23 06:30 86 18 95 02/26/23 06:15 93 H 18 96 02/26/23 06:00 82 19 02/26/23 06:00 111/71 02/26/23 05:31 91 H 18 94 02/26/23 05:31 109/72 02/26/23 05:30 93 H 17 94 02/26/23 05:01 88 15 99 02/26/23 05:01 128/77 02/26/23 05:00 91 H 15 02/26/23 04:40 86 17 95 02/26/23 04:30 91 H 20 02/26/23 04:30 135/81 02/26/23 04:20 91 H 21 93 02/26/23 04:10 100 H 28 H 94 02/26/23 04:00 87 18 95 02/26/23 04:00 130/78 02/26/23 03:50 93 H 21 94 02/26/23 03:40 103 H 19 94 02/26/23 03:31 89 20 94 02/26/23 03:31 114/76 02/26/23 03:30 87 24 02/26/23 03:20 88 19 94 02/26/23 03:10 91 H 19 94 02/26/23 03:00 96 H 21 02/26/23 03:00 124/80 02/26/23 02:50 93 H 26 H 97 02/26/23 02:40 44 L 20 98 02/26/23 02:30 94 H 12 02/26/23 02:30 117/72 02/26/23 02:20 90 23 93 02/26/23 02:10 88 8 L 97 02/26/23 02:01 127/68 02/26/23 02:01 102 H 20 92 04/22/23 02:00 93 H 16 02/26/23 01:50 91 H 18 93 02/26/23 01:40 92 H 15 96 02/26/23 01:30 88 22 94 02/26/23 01:30 113/81 02/26/23 01:20 90 19 94 02/26/23 01:10 84 12 97 02/26/23 01:00 86 16 02/26/23 01:00 110/88 02/26/23 00:50 98 H 19 96 02/26/23 00:45 89 21 94 02/26/23 00:30 96 H 19 92 02/26/23 00:30 122/75 Laboratory Results Laboratory Results - last 24 hr 02/25/23 02/25/23 02/25/23 15:44 15:44 15:44 WBC 6.81 RBC 4.15 L Hgb 12.9 Hct 38.4 MCV 92.5 MCH 31.1 MCHC 33.6 RDW Std Deviation 47.9 H RDW Coeff of Ibeth 14.2 Plt Count 235 MPV 10.3 Immature Gran % (Auto) 1.0 Neut % (Auto) 55.5 Lymph % (Auto) 24.4 Cherry % (Auto) 8.7 Eos % (Auto) 9.4 Baso % (Auto) 1.0 Neut # (Auto) 3.78 Lymph # (Auto) 1.66 Cherry # (Auto) 0.59 Eos # (Auto) 0.64 H Baso # (Auto) 0.07 Immature Gran # (Auto) 0.07 PT 15.4 H POC INR INR 1.4 H APTT 30.4 PTT Ratio 1.1 Sodium Potassium Chloride Carbon Dioxide Anion Gap BUN Creatinine Est Cr Clr Drug Dosing Est GFR ( Amer) Est GFR (Non-Af Amer) BUN/Creatinine Ratio Glucose POC Glucose Estimat Average Glucose Hemoglobin A1c Calcium Phosphorus Magnesium Total Bilirubin AST ALT Alkaline Phosphatase Troponin I High Sens Total Protein Albumin Globulin Albumin/Globulin Ratio Triglycerides Cholesterol LDL Cholesterol, Calc VLDL Cholesterol, Calc HDL Cholesterol Cholesterol/HDL Ratio TSH Free T4 Nasal Screen MRSA (PCR) SARS-CoV-2, RNA, NAAT Blood Type B Positive Antibody Screen NEGATIVE 02/25/23 02/25/23 02/25/23 15:44 16:04 16:13 WBC RBC Hgb Hct MCV MCH MCHC RDW Std Deviation RDW Coeff of Ibeth Plt Count MPV Immature Gran % (Auto) Neut % (Auto) Lymph % (Auto) Cherry % (Auto) Eos % (Auto) Baso % (Auto) Neut # (Auto) Lymph # (Auto) Cherry # (Auto) Eos # (Auto) Baso # (Auto) Immature Gran # (Auto) PT POC INR 1.7 H INR APTT PTT Ratio Sodium 135 L Potassium 4.7 Chloride 103 Carbon Dioxide 24 Anion Gap 8 BUN 19 Creatinine 0.91 Est Cr Clr Drug Dosing Not Reportable Est GFR ( Amer) 74.1 Est GFR (Non-Af Amer) 63.9 BUN/Creatinine Ratio 20.9 H Glucose 131 H POC Glucose 104 H Estimat Average Glucose Hemoglobin A1c Calcium 9.3 Phosphorus Magnesium 2.1 Total Bilirubin 0.6 AST 35 ALT 15 Alkaline Phosphatase 85 Troponin I High Sens 306.4 H* Total Protein 8.1 Albumin 4.3 Globulin 3.8 Albumin/Globulin Ratio 1.1 Triglycerides Cholesterol LDL Cholesterol, Calc VLDL Cholesterol, Calc HDL Cholesterol Cholesterol/HDL Ratio TSH Free T4 Nasal Screen MRSA (PCR) SARS-CoV-2, RNA, NAAT Blood Type Antibody Screen 02/25/23 02/25/23 02/25/23 16:19 20:30 21:44 WBC RBC Hgb Hct MCV MCH MCHC RDW Std Deviation RDW Coeff of Ibeth Plt Count MPV Immature Gran % (Auto) Neut % (Auto) Lymph % (Auto) Cherry % (Auto) Eos % (Auto) Baso % (Auto) Neut # (Auto) Lymph # (Auto) Cherry # (Auto) Eos # (Auto) Baso # (Auto) Immature Gran # (Auto) PT POC INR INR APTT PTT Ratio Sodium Potassium Chloride Carbon Dioxide Anion Gap BUN Creatinine Est Cr Clr Drug Dosing Est GFR ( Amer) Est GFR (Non-Af Amer) BUN/Creatinine Ratio Glucose POC Glucose Estimat Average Glucose Hemoglobin A1c Calcium Phosphorus Magnesium Total Bilirubin AST ALT Alkaline Phosphatase Troponin I High Sens 293.0 H* Total Protein Albumin Globulin Albumin/Globulin Ratio Triglycerides Cholesterol LDL Cholesterol, Calc VLDL Cholesterol, Calc HDL Cholesterol Cholesterol/HDL Ratio TSH Free T4 Nasal Screen MRSA (PCR) Negative SARS-CoV-2, RNA, NAAT NEGATIVE Blood Type Antibody Screen 02/25/23 02/25/23 02/26/23 22:08 22:12 02:02 WBC 10.37 RBC 4.11 L Hgb 12.8 Hct 38.3 MCV 93.2 MCH 31.1 MCHC 33.4 RDW Std Deviation 48.1 H RDW Coeff of Ibeth 14.1 Plt Count 215 MPV 10.3 Immature Gran % (Auto) Neut % (Auto) Lymph % (Auto) Cherry % (Auto) Eos % (Auto) Baso % (Auto) Neut # (Auto) Lymph # (Auto) Cherry # (Auto) Eos # (Auto) Baso # (Auto) Immature Gran # (Auto) PT POC INR INR APTT PTT Ratio Sodium Potassium Chloride Carbon Dioxide Anion Gap BUN Creatinine Est Cr Clr Drug Dosing Est GFR ( Amer) Est GFR (Non-Af Amer) BUN/Creatinine Ratio Glucose POC Glucose 26 L* 117 H Estimat Average Glucose Hemoglobin A1c Calcium Phosphorus Magnesium Total Bilirubin AST ALT Alkaline Phosphatase Troponin I High Sens Total Protein Albumin Globulin Albumin/Globulin Ratio Triglycerides Cholesterol LDL Cholesterol, Calc VLDL Cholesterol, Calc HDL Cholesterol Cholesterol/HDL Ratio TSH Free T4 Nasal Screen MRSA (PCR) SARS-CoV-2, RNA, NAAT Blood Type Antibody Screen 02/26/23 02/26/23 02/26/23 02:02 02:02 02:02 WBC RBC Hgb Hct MCV MCH MCHC RDW Std Deviation RDW Coeff of Ibeth Plt Count MPV Immature Gran % (Auto) Neut % (Auto) Lymph % (Auto) Cherry % (Auto) Eos % (Auto) Baso % (Auto) Neut # (Auto) Lymph # (Auto) Cherry # (Auto) Eos # (Auto) Baso # (Auto) Immature Gran # (Auto) PT POC INR INR APTT PTT Ratio Sodium 135 L Potassium 4.8 Chloride 104 Carbon Dioxide 23 Anion Gap 8 BUN 15 Creatinine 0.80 Est Cr Clr Drug Dosing 49.3 Est GFR ( Amer) 86.6 Est GFR (Non-Af Amer) 74.7 BUN/Creatinine Ratio 18.8 Glucose 100 H POC Glucose Estimat Average Glucose 120 Hemoglobin A1c 5.8 H Calcium 9.1 Phosphorus 3.7 Magnesium 2.1 Total Bilirubin AST ALT Alkaline Phosphatase Troponin I High Sens 206.1 H* D Total Protein Albumin Globulin Albumin/Globulin Ratio Triglycerides 120 Cholesterol 249 H LDL Cholesterol, Calc 173 VLDL Cholesterol, Calc 24 HDL Cholesterol 52 Cholesterol/HDL Ratio 4.8 TSH Free T4 Nasal Screen MRSA (PCR) SARS-CoV-2, RNA, NAAT Blood Type Antibody Screen 02/26/23 02:02 WBC RBC Hgb Hct MCV MCH MCHC RDW Std Deviation RDW Coeff of Ibeth Plt Count MPV Immature Gran % (Auto) Neut % (Auto) Lymph % (Auto) Cherry % (Auto) Eos % (Auto) Baso % (Auto) Neut # (Auto) Lymph # (Auto) Cherry # (Auto) Eos # (Auto) Baso # (Auto) Immature Gran # (Auto) PT POC INR INR APTT PTT Ratio Sodium Potassium Chloride Carbon Dioxide Anion Gap BUN Creatinine Est Cr Clr Drug Dosing Est GFR ( Amer) Est GFR (Non-Af Amer) BUN/Creatinine Ratio Glucose POC Glucose Estimat Average Glucose Hemoglobin A1c Calcium Phosphorus Magnesium Total Bilirubin AST ALT Alkaline Phosphatase Troponin I High Sens Total Protein Albumin Globulin Albumin/Globulin Ratio Triglycerides Cholesterol LDL Cholesterol, Calc VLDL Cholesterol, Calc HDL Cholesterol Cholesterol/HDL Ratio TSH 8.331 H Free T4 0.77 Nasal Screen MRSA (PCR) SARS-CoV-2, RNA, NAAT Blood Type Antibody Screen
--- NOTE | 2023-02-26 12:34 | Cardiology Consultation ---
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 She underwent prior mitral valve replacement with mechanical prosthesis in 2000 and is chronically anticoagulated with acenocoumarol Patient visiting from [place] no recent laboratory testing since She presented with symptoms of acute TIA stroke and was treated via stroke alert with TNK INR subtherapeutic at 1.4 on presentation Echocardiogram demonstrates normally functioning mechanical prosthesis though thrombus or vegetation not able to be discerned. LV systolic function is diffusely impaired but consistent with prior echocardiogram report provided by family EF 25% with diffuse cardiomyopathy. Etiology uncertain EKG with variable ST segment abnormality Recommendations: Initiate anticoagulation with IV heparin, resume antic oagulation with warfarin once hemodynamically stable. Would not use Eliquis with mechanical mitral valve Cautious resumption of beta-minerva, furosemide, spironolactone as clinical course progresses Family attempting to obtain prior records regarding valve structure and type. MRI to be performed once known Discussed in family and multiple members they are very reluctant to allow changes in medications but are agreeable to above History of Present Illness Reason for Consultation: TIA/stroke, mechanical mitral valve Requesting Physician: Dr. Ann Attending Physician: Marija Ann, DO History of Present Illness Patient is a 72-year-old female visiting the area from [facility]. 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 She was also able to provide additional information including recent echocardiogram from [place] 1. Mechanical mitral valve replacement 2000, [employer] device on chronic anticoagulation with acenocoumarol 2. LV dysfunction uncertain etiology with echocardiogram demonstrating moderate to severe LV dysfunction EF 25% Per discussions with family members yesterday patient nauseated with episode emesis in the morning and after lunch. Was able to eat evening meal without difficulty but while riding in a car developed sudden change in mental status, dysarthria and facial droop. She presented nearly immediately to the emergency room less than 15 minutes of onset of complaints and was treated via stroke alert with TNK INR subtherapeutic on presentation Patient had prompt resolve of neurologic complaints Denies any specific complaints currently at time of examination but nursing staff notes episodes of emesis and nausea Patient denies chest pain or shortness of breath Atrial fibrillation observed on presentation of uncertain duration patient unaware of prior history of arrhythmias No bleeding difficult No fevers chills or unexplained infections Family reaching out to cardiology in [place] regarding prior history. Patient contacted family friend who is a interventional physiatrist and through telephone encounter with myself was able to explain indications for treatment including anticoagulation Allergies Allergy/AdvReac Type Severity Reaction Status Date / Time No Known Allergies Allergy Verified 02/25/23 16:22 Home Medications Medication Instructions Recorded Confirmed Type Acenocoumarol 0.5 mg PO DAILY 02/25/23 02/25/23 History Spironlactone + Frusemide 1 tab PO DAILY 02/25/23 02/25/23 History aspirin 81 mg tablet,delayed 81 mg PO DAILY 02/25/23 02/25/23 History release carvedilol 12.5 mg tablet 12.5 mg PO BID 02/25/23 02/25/23 History Patient History Medical History Chronic anticoagulation Surgical History Mechanical heart valve present Family History Mother , of a stroke at age 65 Stroke Father , age 60 from throat cancer Cancer Social History Smoking Status: Never smoker Do You Dip or Chew Tobacco: No; Hx Alcohol Use: No Hx Substance Use: No Preferred Language: [place] Communication Ability: Impaired Communication Tools: IPad Assembler Movement Required: Yes Beliefs That Will Affect Care: None Current Living Situation: Spouse Current Living Situation Comment: home with current occupational status: unemployed Other Information That Helps Us Care for You: No Feels Safe at Home: Yes Safety Concerns: Feels Safe At This Time Assistive Devices: None Review of Systems Review of Systems: All systems reviewed & are unremarkable except as noted in HPI & below Physical Exam Constitutional: well developed and well nourished; no acute distress Eyes: PERRL, conjunctivae normal, anicteric sclerae ENMT: external ear and nose normal, oropharynx normal Neck: trachea midline, no thyromegaly Respiratory: normal respiratory effort Cardiovascular: Rate/Rhythm: + irregularly irregular Vessels: no JVD Extremities: no edema [place] mechanical valve sounds audible Gastrointestinal (Abdomen): Percussion/Palpation: abdomen soft; no guarding and no hepatosplenomegaly Musculoskeletal: no cyanosis or clubbing, extremities motor strength 5/5 Neurologic: PERRL, EOMI, accommodation nl, no face palsy, no dysarthria Results & Data Vital Signs (Past 12 Hours) Vital Signs Pulse Pulse Resp BP BP Pulse Ox O2 Del Method 02/26/23 09:02 105 H 23 98 02/26/23 09:02 138/90 02/26/23 09:00 94 H 19 02/26/23 08:37 91 H 34 H 95 02/26/23 08:37 136/110 H 02/26/23 08:30 93 H 31 H 98 02/26/23 08:01 100 H 18 94 02/26/23 08:01 126/85 02/26/23 08:00 90 22 02/26/23 07:36 137/91 02/26/23 07:36 88 16 97 02/26/23 07:30 93 H 18 98 02/26/23 07:00 92 H 21 02/26/23 07:00 112/81 02/26/23 08:30 92 H 23 136/110 H 96 Room Air 02/26/23 07:30 94 H 24 137/91 97 Room Air 02/26/23 07:19 95 H 02/26/23 06:31 93 H 19 95 02/26/23 06:31 129/65 02/26/23 06:30 86 18 95 02/26/23 06:15 93 H 18 96 02/26/23 06:00 82 19 02/26/23 06:00 111/71 02/26/23 05:31 91 H 18 94 02/26/23 05:31 109/72 02/26/23 05:30 93 H 17 94 02/26/23 05:01 88 15 99 02/26/23 05:01 128/77 02/26/23 05:00 91 H 15 02/26/23 04:40 86 17 95 02/26/23 04:30 91 H 20 02/26/23 04:30 135/81 02/26/23 04:20 91 H 21 93 02/26/23 04:10 100 H 28 H 94 02/26/23 04:00 87 18 95 02/26/23 04:00 130/78 02/26/23 03:50 93 H 21 94 02/26/23 03:40 103 H 19 94 02/26/23 03:31 89 20 94 02/26/23 03:31 114/76 02/26/23 03:30 87 24 02/26/23 03:20 88 19 94 02/26/23 03:10 91 H 19 94 02/26/23 03:00 96 H 21 02/26/23 03:00 124/80 02/26/23 02:50 93 H 26 H 97 02/26/23 02:40 44 L 20 98 02/26/23 02:30 94 H 12 02/26/23 02:30 117/72 02/26/23 02:20 90 23 93 02/26/23 02:10 88 8 L 97 02/26/23 02:01 127/68 02/26/23 02:01 102 H 20 92 02/26/23 02:00 93 H 16 02/26/23 01:50 91 H 18 93 02/26/23 01:40 92 H 15 96 02/26/23 01:30 88 22 94 02/26/23 01:30 113/81 02/26/23 01:20 90 19 94 02/26/23 01:10 84 12 97 02/26/23 01:00 86 16 02/26/23 01:00 110/88 02/26/23 00:50 98 H 19 96 02/26/23 00:45 89 21 94 Laboratory Results Laboratory Results - last 24 hr 02/25/23 02/25/23 02/25/23 15:44 15:44 15:44 WBC 6.81 RBC 4.15 L Hgb 12.9 Hct 38.4 MCV 92.5 MCH 31.1 MCHC 33.6 RDW Std Deviation 47.9 H RDW Coeff of Ibeth 14.2 Plt Count 235 MPV 10.3 Immature Gran % (Auto) 1.0 Neut % (Auto) 55.5 Lymph % (Auto) 24.4 [place] % (Auto) 8.7 Eos % (Auto) 9.4 Baso % (Auto) 1.0 Neut # (Auto) 3.78 Lymph # (Auto) 1.66 [place] # (Auto) 0.59 Eos # (Auto) 0.64 H Baso # (Auto) 0.07 Immature Gran # (Auto) 0.07 PT 15.4 H POC INR INR 1.4 H APTT 30.4 PTT Ratio 1.1 Sodium Potassium Chloride Carbon Dioxide Anion Gap BUN Creatinine Est Cr Clr Drug Dosing Est GFR ( Amer) Est GFR (Non-Af Amer) BUN/Creatinine Ratio Glucose POC Glucose Estimat Average Glucose Hemoglobin A1c Calcium Phosphorus Magnesium Total Bilirubin AST ALT Alkaline Phosphatase Troponin I High Sens Total Protein Albumin Globulin Albumin/Globulin Ratio Triglycerides Cholesterol LDL Cholesterol, Calc VLDL Cholesterol, Calc HDL Cholesterol Cholesterol/HDL Ratio TSH Free T4 Nasal Screen MRSA (PCR) SARS-CoV-2, RNA, NAAT Blood Type B Positive Antibody Screen NEGATIVE 02/25/23 02/25/23 02/25/23 15:44 16:04 16:13 WBC RBC Hgb Hct MCV MCH MCHC RDW Std Deviation RDW Coeff of Ibeth Plt Count MPV Immature Gran % (Auto) Neut % (Auto) Lymph % (Auto) [place] % (Auto) Eos % (Auto) Baso % (Auto) Neut # (Auto) Lymph # (Auto) [place] # (Auto) Eos # (Auto) Baso # (Auto) Immature Gran # (Auto) PT POC INR 1.7 H INR APTT PTT Ratio Sodium 135 L Potassium 4.7 Chloride 103 Carbon Dioxide 24 Anion Gap 8 BUN 19 Creatinine 0.91 Est Cr Clr Drug Dosing Not Reportable Est GFR ( Amer) 74.1 Est GFR (Non-Af Amer) 63.9 BUN/Creatinine Ratio 20.9 H Glucose 131 H POC Glucose 104 H Estimat Average Glucose Hemoglobin A1c Calcium 9.3 Phosphorus Magnesium 2.1 Total Bilirubin 0.6 AST 35 ALT 15 Alkaline Phosphatase 85 Troponin I High Sens 306.4 H* Total Protein 8.1 Albumin 4.3 Globulin 3.8 Albumin/Globulin Ratio 1.1 Triglycerides Cholesterol LDL Cholesterol, Calc VLDL Cholesterol, Calc HDL Cholesterol Cholesterol/HDL Ratio TSH Free T4 Nasal Screen MRSA (PCR) SARS-CoV-2, RNA, NAAT Blood Type Antibody Screen 02/25/23 02/25/23 02/25/23 16:19 20:30 21:44 WBC RBC Hgb Hct MCV MCH MCHC RDW Std Deviation RDW Coeff of Ibeth Plt Count MPV Immature Gran % (Auto) Neut % (Auto) Lymph % (Auto) [place] % (Auto) Eos % (Auto) Baso % (Auto) Neut # (Auto) Lymph # (Auto) [place] # (Auto) Eos # (Auto) Baso # (Auto) Immature Gran # (Auto) PT POC INR INR APTT PTT Ratio Sodium Potassium Chloride Carbon Dioxide Anion Gap BUN Creatinine Est Cr Clr Drug Dosing Est GFR ( Amer) Est GFR (Non-Af Amer) BUN/Creatinine Ratio Glucose POC Glucose Estimat Average Glucose Hemoglobin A1c Calcium Phosphorus Magnesium Total Bilirubin AST ALT Alkaline Phosphatase Troponin I High Sens 293.0 H* Total Protein Albumin Globulin Albumin/Globulin Ratio Triglycerides Cholesterol LDL Cholesterol, Calc VLDL Cholesterol, Calc HDL Cholesterol Cholesterol/HDL Ratio TSH Free T4 Nasal Screen MRSA (PCR) Negative SARS-CoV-2, RNA, NAAT NEGATIVE Blood Type Antibody Screen 02/25/23 02/25/23 02/26/23 22:08 22:12 02:02 WBC 10.37 RBC 4.11 L Hgb 12.8 Hct 38.3 MCV 93.2 MCH 31.1 MCHC 33.4 RDW Std Deviation 48.1 H RDW Coeff of Ibeth 14.1 Plt Count 215 MPV 10.3 Immature Gran % (Auto) Neut % (Auto) Lymph % (Auto) [place] % (Auto) Eos % (Auto) Baso % (Auto) Neut # (Auto) Lymph # (Auto) [place] # (Auto) Eos # (Auto) Baso # (Auto) Immature Gran # (Auto) PT POC INR INR APTT PTT Ratio Sodium Potassium Chloride Carbon Dioxide Anion Gap BUN Creatinine Est Cr Clr Drug Dosing Est GFR ( Amer) Est GFR (Non-Af Amer) BUN/Creatinine Ratio Glucose POC Glucose 26 L* 117 H Estimat Average Glucose Hemoglobin A1c Calcium Phosphorus Magnesium Total Bilirubin AST ALT Alkaline Phosphatase Troponin I High Sens Total Protein Albumin Globulin Albumin/Globulin Ratio Triglycerides Cholesterol LDL Cholesterol, Calc VLDL Cholesterol, Calc HDL Cholesterol Cholesterol/HDL Ratio TSH Free T4 Nasal Screen MRSA (PCR) SARS-CoV-2, RNA, NAAT Blood Type Antibody Screen 02/26/23 02/26/23 02/26/23 02:02 02:02 02:02 WBC RBC Hgb Hct MCV MCH MCHC RDW Std Deviation RDW Coeff of Ibeth Plt Count MPV Immature Gran % (Auto) Neut % (Auto) Lymph % (Auto) [place] % (Auto) Eos % (Auto) Baso % (Auto) Neut # (Auto) Lymph # (Auto) [place] # (Auto) Eos # (Auto) Baso # (Auto) Immature Gran # (Auto) PT POC INR INR APTT PTT Ratio Sodium 135 L Potassium 4.8 Chloride 104 Carbon Dioxide 23 Anion Gap 8 BUN 15 Creatinine 0.80 Est Cr Clr Drug Dosing 49.3 Est GFR ( Amer) 86.6 Est GFR (Non-Af Amer) 74.7 BUN/Creatinine Ratio 18.8 Glucose 100 H POC Glucose Estimat Average Glucose 120 Hemoglobin A1c 5.8 H Calcium 9.1 Phosphorus 3.7 Magnesium 2.1 Total Bilirubin AST ALT Alkaline Phosphatase Troponin I High Sens 206.1 H* D Total Protein Albumin Globulin Albumin/Globulin Ratio Triglycerides 120 Cholesterol 249 H LDL Cholesterol, Calc 173 VLDL Cholesterol, Calc 24 HDL Cholesterol 52 Cholesterol/HDL Ratio 4.8 TSH Free T4 Nasal Screen MRSA (PCR) SARS-CoV-2, RNA, NAAT Blood Type Antibody Screen 02/26/23 02:02 WBC RBC Hgb Hct MCV MCH MCHC RDW Std Deviation RDW Coeff of Ibeth Plt Count MPV Immature Gran % (Auto) Neut % (Auto) Lymph % (Auto) [place] % (Auto) Eos % (Auto) Baso % (Auto) Neut # (Auto) Lymph # (Auto) [place] # (Auto) Eos # (Auto) Baso # (Auto) Immature Gran # (Auto) PT POC INR INR APTT PTT Ratio Sodium Potassium Chloride Carbon Dioxide Anion Gap BUN Creatinine Est Cr Clr Drug Dosing Est GFR ( Amer) Est GFR (Non-Af Amer) BUN/Creatinine Ratio Glucose POC Glucose Estimat Average Glucose Hemoglobin A1c Calcium Phosphorus Magnesium Total Bilirubin AST ALT Alkaline Phosphatase Troponin I High Sens Total Protein Albumin Globulin Albumin/Globulin Ratio Triglycerides Cholesterol LDL Cholesterol, Calc VLDL Cholesterol, Calc HDL Cholesterol Cholesterol/HDL Ratio TSH 8.331 H Free T4 0.77 Nasal Screen MRSA (PCR) SARS-CoV-2, RNA, NAAT Blood Type Antibody Screen Diagnostic Findings Echocardiogram 02/26/2023 The left ventricle is normal in size. There is borderline concentric left ventricular hypertrophy. There is moderate to severe global hypokinesis of the left ventricle. Ejection Fraction = 25-30%. The left atrium is severely dilated. Aortic valve sclerosis mild, without significant aortic valvular stenosis. There is a mechanical mitral valve. Mechanical leaflets appear freely mobile. There is significant perivalvular pannus Prosthetic mitral valve peak and/or mean gradients are normal. There is moderate to severe tricuspid regurgitation. Doppler findings do not suggest pulmonary hypertension. The interatrial septum is intact with no evidence for an atrial septal defect.
--- NOTE | 2023-02-26 12:57 | Electrocardiogram Report ---
Test Reason : Blood Pressure : / mmHG Vent. Rate : 099 BPM Atrial Rate : 182 BPM P-R Int : 000 ms QRS Dur : 096 ms QT Int : 370 ms P-R-T Axes : 000 033 138 degrees QTc Int : 474 ms Atrial fibrillation Nonspecific ST and T wave abnormality Abnormal ECG No previous ECGs available Confirmed by Rainer Reid ([id number]) on 02/26/2023 12:57:02 PM Referred By: REFERRED SELF Confirmed By:Rainer Reid
--- NOTE | 2023-02-26 13:12 | Electrocardiogram Report ---
Test Reason : Blood Pressure : / mmHG Vent. Rate : 099 BPM Atrial Rate : 208 BPM P-R Int : 000 ms QRS Dur : 100 ms QT Int : 380 ms P-R-T Axes : 000 035 215 degrees QTc Int : 487 ms Atrial fibrillation Prolonged QT Abnormal ECG When compared with ECG of 25-FEB-2023 16:04, (unconfirmed) T wave inversion now evident in Anterior leads Confirmed by Rainer Reid ([id number] on 02/26/2023 1:11:45 PM Referred By: REFERRED SELF Confirmed By:Rainer Reid
[2023-02-26] MEDS ORDERED: PROMETHAZINE HCL 6.25 MG in SODIUM CHLORIDE 0.9% 50 ML IV STA (13:28)
[2023-02-26] MEDS ORDERED: DOPamine 400MG / 250ML D5W IV ONE (14:02)
[2023-02-26] MEDS ORDERED: STAT IV Infusion **Titration per Protocol STA (14:02)
[2023-02-26] MEDS ORDERED: DOPamine / D5W 400 MG/250 ML BAG IV SCH (14:15)
--- NOTE | 2023-02-26 14:30 | Critical Care Progress Note ---
Date of Service February 26, 2023 Assessment & Plan (1) Stroke-like symptoms: Plan: Status post TNKase. -Discussed with neurology -Unable to obtain MRI as we are unable to verify type of mechanical heart valve (2) Atrial fibrillation: Plan: Atrial fibrillation was noted on prior records from [place] -Was on a Coumadin from [place] -This was subtherapeutic -Discussed with neurology and cardiology with regards to restarting heparin which has occurred prior to the 24-hour point -Risks of subtherapeutic anticoagulation and embolic phenomenon outweigh the bleeding risks. Tachybradycardia syndrome -Bradycardia surrounds episodes of nausea -Attempted dopamine to prevent bradycardia and may be prevent the nausea. Patient did not tolerate low dose dopamine -Further it now appears that the bradycardia is probably vagally mediated from nausea -Repeat EKG demonstrates nonspecific T wave abnormalities -Pacer pads present at all times in case bradycardia starts to affect her hemodynamics (3) Mechanical heart valve present: Plan: Attempting to obtain additional records to further identify model (4) Chronic anticoagulation: Plan: Proceeding with low-dose heparin (5) Elevated troponin: (6) Cardiomyopathy: (7) Tachy-chanelle syndrome: Plan Patient critically ill due to cardiomyopathy and probable embolic phenomenon secondary to subtherapeutic anticoagulation with mechanical heart valve I have personally spent 65 minutes of critical care time in the direct management of this patient. This is a life/limb threatening event. This includes time spent evaluating patient, direct bedside care, chart review, placing orders, interpretation of diagnostic studies, discussion with consultants, patient, and/or family members regarding treatment decisions, as well as other required patient management activities. This time is exclusive of all separately billable procedures, and teaching time and separate from and in addition to any other critical care service time. Admission and Anticipated Discharge Date Admission Date: February 25, 2023 Subjective Episodes of nausea with vomiting. She subsequently has tachybradycardia phenomenon, the bradycardia may be related to nausea or nausea related to the bradycardia. Physical Exam Physical Exam: General: Alert. nontoxic. Skin: Warm, dry, Head: Atraumatic Ears, nose, mouth and throat: airway patent Cardiovascular: Normal peripheral perfusion Respiratory: no respiratory distress Gastrointestinal: Non distended Musculoskeletal: No deformity Results & Data Results & Data Vital Signs (Past 12 Hours) Vital Signs Pulse Pulse Resp BP BP Pulse Ox O2 Del Method 02/26/23 12:00 100 H 20 128/94 98 Room Air 02/26/23 11:00 96 H 20 139/98 95 Room Air 02/26/23 10:00 97 H 19 134/85 89 L Room Air 02/26/23 09:02 100 H 24 138/90 98 Room Air 02/26/23 09:02 105 H 23 98 02/26/23 09:02 138/90 02/26/23 09:00 94 H 19 02/26/23 08:37 91 H 34 H 95 02/26/23 08:37 136/110 H 02/26/23 08:30 93 H 31 H 98 02/26/23 08:01 100 H 18 94 02/26/23 08:01 126/85 02/26/23 08:00 90 22 02/26/23 07:36 137/91 02/26/23 07:36 88 16 97 02/26/23 07:30 93 H 18 98 02/26/23 07:00 92 H 21 02/26/23 07:00 112/81 02/26/23 08:30 92 H 23 136/110 H 96 Room Air 02/26/23 07:30 94 H 24 137/91 97 Room Air 02/26/23 07:19 95 H 02/26/23 06:31 93 H 19 95 02/26/23 06:31 129/65 02/26/23 06:30 86 18 95 02/26/23 06:15 93 H 18 96 02/26/23 06:00 82 19 02/26/23 06:00 111/71 02/26/23 05:31 91 H 18 94 02/26/23 05:31 109/72 02/26/23 05:30 93 H 17 94 02/26/23 05:01 88 15 99 02/26/23 05:01 128/77 02/26/23 05:00 91 H 15 02/26/23 04:40 86 17 95 02/26/23 04:30 91 H 20 02/26/23 04:30 135/81 02/26/23 04:20 91 H 21 93 02/26/23 04:10 100 H 28 H 94 02/26/23 04:00 87 18 95 02/26/23 04:00 130/78 02/26/23 03:50 93 H 21 94 02/26/23 03:40 103 H 19 94 02/26/23 03:31 89 20 94 02/26/23 03:31 114/76 02/26/23 03:30 87 24 02/26/23 03:20 88 19 94 02/26/23 03:10 91 H 19 94 02/26/23 03:00 96 H 21 02/26/23 03:00 124/80 02/26/23 02:50 93 H 26 H 97 02/26/23 02:40 44 L 20 98 02/26/23 02:30 94 H 12 02/26/23 02:30 117/72 Critical Care Results & Data Vital Signs (Past 12 Hours) Vital Signs Pulse Pulse Resp BP BP Pulse Ox O2 Del Method 02/26/23 12:00 100 H 20 128/94 98 Room Air 02/26/23 11:00 96 H 20 139/98 95 Room Air 02/26/23 10:00 97 H 19 134/85 89 L Room Air 02/26/23 09:02 100 H 24 138/90 98 Room Air 02/26/23 09:02 105 H 23 98 02/26/23 09:02 138/90 02/26/23 09:00 94 H 19 02/26/23 08:37 91 H 34 H 95 02/26/23 08:37 136/110 H 02/26/23 08:30 93 H 31 H 98 02/26/23 08:01 100 H 18 94 02/26/23 08:01 126/85 02/26/23 08:00 90 22 02/26/23 07:36 137/91 02/26/23 07:36 88 16 97 02/26/23 07:30 93 H 18 98 02/26/23 07:00 92 H 21 02/26/23 07:00 112/81 02/26/23 08:30 92 H 23 136/110 H 96 Room Air 02/26/23 07:30 94 H 24 137/91 97 Room Air 02/26/23 07:19 95 H 02/26/23 06:31 93 H 19 95 02/26/23 06:31 129/65 02/26/23 06:30 86 18 95 02/26/23 06:15 93 H 18 96 02/26/23 06:00 82 19 02/26/23 06:00 111/71 02/26/23 05:31 91 H 18 94 04/22/23 05:31 109/72 02/26/23 05:30 93 H 17 94 02/26/23 05:01 88 15 99 02/26/23 05:01 128/77 02/26/23 05:00 91 H 15 02/26/23 04:40 86 17 95 02/26/23 04:30 91 H 20 02/26/23 04:30 135/81 02/26/23 04:20 91 H 21 93 02/26/23 04:10 100 H 28 H 94 02/26/23 04:00 87 18 95 02/26/23 04:00 130/78 02/26/23 03:50 93 H 21 94 02/26/23 03:40 103 H 19 94 02/26/23 03:31 89 20 94 02/26/23 03:31 114/76 02/26/23 03:30 87 24 02/26/23 03:20 88 19 94 02/26/23 03:10 91 H 19 94 02/26/23 03:00 96 H 21 02/26/23 03:00 124/80 02/26/23 02:50 93 H 26 H 97 02/26/23 02:40 44 L 20 98 02/26/23 02:30 94 H 12 02/26/23 02:30 117/72 Lab & Micro Results (Past 24 Hours) RBC 4.11 M/uL (4.20-5.40) L 02/26/23 WBC 10.37 K/ul (4.8-10.8) 02/26/23 Hgb 12.8 g/dl (12.0-16.0) 02/26/23 Hct 38.3 % (37.0-47.0) 02/26/23 MCV 93.2 fL (80.0-100.0) 02/26/23 MCH 31.1 pg (25.0-34.0) 02/26/23 MCHC 33.4 g/dL (32.0-36.0) 02/26/23 RDW Standard Deviation 48.1 fL (36.4-46.3) H 02/26/23 RDW Coefficient of Variation 14.1 % (11.5-14.5) 02/26/23 Plt Count 215 K/uL (130-400) 02/26/23 MPV 10.3 fL (9.4-12.4) 02/26/23 Neutrophils (%) (Auto) 55.5 % 02/25/23 Lymphocytes (%) (Auto) 24.4 % 02/25/23 Monocytes # (Auto) 0.59 K/uL (0.11-0.59) 02/25/23 Eosinophils # (Auto) 0.64 K/uL (0-0.50) H 02/25/23 Immature Granulocyte % (Auto) 1.0 % 02/25/23 Neutrophils # (Auto) 3.78 K/uL (1.40-6.50) 02/25/23 Lymphocytes # (Auto) 1.66 K/uL (1.2-3.4) 02/25/23 Monocytes # (Auto) 0.59 K/uL (0.11-0.59) 02/25/23 Eosinophils # (Auto) 0.64 K/uL (0-0.50) H 02/25/23 Basophils # (Auto) 0.07 K/uL (0-0.2) 02/25/23 Immature Granulocyte # (Auto) 0.07 K/uL (0.01-0.20) 3 Na 135 mmol/L (136-145) L 02/26/23 K 4.8 mmol/L (3.5-5.1) 02/26/23 Cl 104 mmol/L (98-107) 02/26/23 CO2 23 mmol/L (21-32) 02/26/23 Anion Gap 8 (3-11) 02/26/23 BUN 15 mg/dl (6-23) 02/26/23 Creatinine 0.80 mg/dl (0.6-1.2) 02/26/23 Estimated GFR ( Amer) 86.6 ml/min 02/26/23 Estimated GFR (Non-Af Amer) 74.7 ml/min 02/26/23 BUN/Creatinine Ratio 18.8 (10-20) 02/26/23 Glu 100 mg/dl (70-99(Fasting)) H 02/26/23 Ca 9.1 mg/dl (8.6-10.3) 02/26/23 Phosphorus Level 3.7 mg/dl (2.5-4.9) 02/26/23 Total Bilirubin 0.6 mg/dl (0.2-1.0) 02/25/23 AST 35 U/L (13-39) 02/25/23 ALT 15 U/L (7-52) 02/25/23 Alkaline Phosphatase 85 U/L (34-104) 02/25/23 TP 8.1 gm/dl (6.0-8.3) 02/25/23 Albumin 4.3 gm/dl (3.4-5.0) 02/25/23 Globulin 3.8 gm/dl (2.5-4.0) 02/25/23 Albumin/Globulin Ratio 1.1 (0.9-2) 02/25/23 Mg 2.1 mg/dl (1.7-2.4) 02/26/23 02:02 Calcium Level 9.1 mg/dl (8.6-10.3) 02/26/23 02:02 Prothromb Time International Ratio 1.4 (0.9-1.1) H 02/25/23 15 :44 Diagnostic Findings (Past 24 Hours) Chest X-Ray 02/25/23 15:41 SINGLE VIEW CHEST CLINICAL HISTORY: Neurological deficit. Stroke like symptoms. FINDINGS: An AP, portable, upright chest radiograph is obtained. No prior studies are available for comparison at the time of dictation. The patient is status post midline sternotomy and cardiac valve surgery. The heart is enlarged noting atherosclerotic calcification of the thoracic aorta. The pulmonary vasculature is noncongested. Nonspecific interstitial thickening likely chronic. There is bibasilar scarring/atelectasis. No airspace consolidation or large pleural effusion is identified. No pneumothorax is seen. The skeletal structures are osteopenic. The bony thorax is grossly intact. IMPRESSION: Cardiomegaly with no acute cardiopulmonary abnormality identified. ACT 112: Negative or not required by law. Electronically signed by: Nathen Katz M.D. 02/25/2023 5:[address] 02/25/23 15:41 CT head/brain wo con, CT angio neck with con, CT angio head w con CLINICAL HISTORY: 72 years-old Female with neuro deficit, acute stroke suspected. Acute strokelike symptoms TECHNIQUE: Multiple axial CT images of the head were obtained without contrast. CTA had and neck was also obtained following the intravenous ministration of 111 Optiray 320. 3-D coronal and sagittal MIPS were obtained and submitted for review. All measurements were obtained according to NASCET criteria. A dose lowering technique was utilized adhering to the principles of ALARA. CT DOSE: 1047.40 mGy.cm COMPARISON: None. FINDINGS: CT HEAD: No acute intracranial hemorrhage, midline shift, intracranial mass, hydrocephalus, territorial ischemia or abnormal extra-axial collection. Involutional changes with chronic microvascular ischemic disease. The calvarium is intact. Trace mastoid effusions. Mild mucosal thickening of the paranasal sinuses. CTA HEAD AND NECK: Cardiomegaly with prior median sternotomy. Atherosclerosis of the aorta. Patency of the innominate and imaged subclavian arteries. The common carotid arteries are widely patent. Minimal atherosclerosis of the internal carotid arteries without significant stenosis. There is tortuosity within the distal cervical segments of the internal carotid arteries. The middle and anterior cerebral arteries appear patent. The vertebral arteries are codominant and appear widely patent. The basilar and posterior cerebral arteries are also patent. Cerebral venous sinuses are patent. There is no abnormal intracranial enhancement. No pneumothorax. Unremarkable soft tissues. Degenerative changes of the cervical spine. IMPRESSION: 1. No acute intracranial abnormality. 2. Unremarkable CTA of the head and neck. ACT 112: Negative or not required by law. The above report was generated using voice recognition software. It may contain grammatical, syntax or spelling errors. Electronically signed by: Fernando Madsen M.D. 02/25/2023 4:07 PM Head CTA 02/25/23 15:41 CT head/brain wo con, CT angio neck with con, CT angio head w con CLINICAL HISTORY: 72 years-old Female with neuro deficit, acute stroke suspected. Acute strokelike symptoms TECHNIQUE: Multiple axial CT images of the head were obtained without contrast. CTA had and neck was also obtained following the intravenous ministration of 111 Optiray 320. 3-D coronal and sagittal MIPS were obtained and submitted for review. All measurements were obtained according to NASCET criteria. A dose lowering technique was utilized adhering to the principles of ALARA. CT DOSE: 1047.40 mGy.cm COMPARISON: None. FINDINGS: CT HEAD: No acute intracranial hemorrhage, midline shift, intracranial mass, hydrocephalus, territorial ischemia or abnormal extra-axial collection. Involutional changes with chronic microvascular ischemic disease. The calvarium is intact. Trace mastoid effusions. Mild mucosal thickening of the paranasal sinuses. CTA HEAD AND NECK: Cardiomegaly with prior median sternotomy. Atherosclerosis of the aorta. Patency of the innominate and imaged subclavian arteries. The common carotid arteries are widely patent. Minimal atherosclerosis of the internal carotid arteries without significant stenosis. There is tortuosity within the distal cervical segments of the internal carotid arteries. The middle and anterior cerebral arteries appear patent. The vertebral arteries are codominant and appear widely patent. The basilar and posterior cerebral arteries are also patent. Cerebral venous sinuses are patent. There is no abnormal intracranial enhancement. No pneumothorax. Unremarkable soft tissues. Degenerative changes of the cervical spine. IMPRESSION: 1. No acute intracranial abnormality. 2. Unremarkable CTA of the head and neck. ACT 112: Negative or not required by law. The above report was generated using voice recognition software. It may contain grammatical, syntax or spelling errors. Electronically signed by: Fernando Madsen M.D. 02/25/2023 4:07 PM Neck CTA 02/25/23 15:41 CT head/brain wo con, CT angio neck with con, CT angio head w con CLINICAL HISTORY: 72 years-old Female with neuro deficit, acute stroke suspected. Acute strokelike symptoms TECHNIQUE: Multiple axial CT images of the head were obtained without contrast. CTA had and neck was also obtained following the intravenous ministration of 111 Optiray 320. 3-D coronal and sagittal MIPS were obtained and submitted for review. All measurements were obtained according to NASCET criteria. A dose lowering technique was utilized adhering to the principles of ALARA. CT DOSE: 1047.40 mGy.cm COMPARISON: None. FINDINGS: CT HEAD: No acute intracranial hemorrhage, midline shift, intracranial mass, hydrocephalus, territorial ischemia or abnormal extra-axial collection. Involutional changes with chronic microvascular ischemic disease. The calvarium is intact. Trace mastoid effusions. Mild mucosal thickening of the paranasal sinuses. CTA HEAD AND NECK: Cardiomegaly with prior median sternotomy. Atherosclerosis of the aorta. Patency of the innominate and imaged subclavian arteries. The common carotid arteries are widely patent. Minimal atherosclerosis of the internal carotid arteries without significant stenosis. There is tortuosity within the distal cervical segments of the internal carotid arteries. The middle and anterior cerebral arteries appear patent. The vertebral arteries are codominant and appear widely patent. The basilar and posterior cerebral arteries are also patent. Cerebral venous sinuses are patent. There is no abnormal intracranial enhancement. No pneumothorax. Unremarkable soft tissues. Degenerative changes of the cervical spine. IMPRESSION: 1. No acute intracranial abnormality. 2. Unremarkable CTA of the head and neck. ACT 112: Negative or not required by law. The above report was generated using voice recognition software. It may contain grammatical, syntax or spelling errors. Electronically signed by: Fernando Madsen M.D. 02/25/2023 4:07 PM I & O Totals 24 Hours 02/25/23 02/26/23 02/27/23 06:59 06:59 06:59 Intake Total 60 / 60 0 / 0 Output Total 0 / 0 0 / 0 Balance 60 / 60 0 / 0 Cumulative 02/25/23 15:24 thru 02/26/23 13:00 Intake Total 60 Output Total 0 Balance 60 RT Ventilator Mngmt (Last Documented) Ventilator Ordered Settings Respiratory Rate 20 02/26/23 12:00 Ventilator - PT Measurements Respiratory Rate 20 Coding Level of Care Code 25695 CRITICAL CARE 1ST 30-74M Diagnoses Stroke-like symptoms R29.90 Atrial fibrillation I48.91 Mechanical heart valve present Z95.2 Chronic anticoagulation Z79.01 Elevated troponin R77.8 Cardiomyopathy I42.9 Tachy-chanelle syndrome I49.5
[2023-02-26] MEDS: Heparin IV Adult Wt-Based Low-Dose *NO* Bolus Protocol IV SCH ×2 (14:32→15:37)
[2023-02-26] MEDS: ICU Protocol for HYPERglycemia SCH ×2 (15:36→15:37)
--- NOTE | 2023-02-26 15:38 | Communication Note ---
Date of Service: February 26, 2023 Patient seen and examined. Has been experiencing episodes of transient pauses in association with cough and emesis. Prompt return to atrial fibrillation with rate approximate 100. Currently no signs of congestive heart failure. Trial of low-dose dopamine resulted in elevated heart rate. Anticoagulation initiated with IV heparin appropriately. Mechanical prosthesis in the mitral valve position present high risk for thromboembolic phenomena Current etiology of nausea and cough uncertain. We will follow for aspiration possible splanchnic embolization. Record review reveals diffuse cardiomyopathy on prior echocardiograms prior to travel from [place] EF 20% per report. Similar findings on echocardiogram today ischemic etiology not excluded Ultimate goals resume anticoagulation with warfarin but holding until hemodynamic stability assured
[2023-02-26] MEDS ORDERED: hydrALAZINE HCL 20 MG/ML VIAL ONE (17:56)
--- NOTE | 2023-02-26 18:07 | Discharge Summary ---
Discharge Summary Date of Service February 26, 2023 Notes For Next Care Provider This patient underwent TNK administration for acute stroke with resolution of right facial droop and dysarthria She subsequently developed pauses on telemetry and bradycardia and was given a short trial of dopamine. She became tachycardic and nausea/vomiting did not improve. Dopamine was stopped. Heparin was started for afib and known mechanical mitral valve (INR 1/4 on arrival to facility 02/25) Repeat [address] reveals acute intracranial bleeding. No neurosurgical support services are present at this facility so she is being routed by critical care air transport to tertiary care center. Medication Changes From Visit see med rec Admission HPI Per Admitting Provider Patient is 72 y/o F with [facility] mechanical valve replacement in 2000 in [place], on chronic anticoagulation presented to ER with her son with c/o dysarthria prior to arrival. History obtained from patient, patient's son. Speaks Artemio, gujarati. Adult Daycare Coordinator services were needed. Reports that patient was riding in the car with her daughter in law. Daughter in law thought patient was sleeping however tried to arouse and was difficult to understand patient and she noticed patient had right facial droop and was drooling. She was having difficulty talking. Reports symptoms started approximately 15 minutes prior to arrival. In ER the conference interpreter noted dysphagia and tele stroke alert was called. Patient was given TNK. During ER course right facial droop and dysarthria have resolved. Denies fever/chills, diaphoresis, N/V/D/C, MCKAY, dizziness, syncope, vision changes, neck pain, CP, SOB, palpitations, cough, abdominal pain, paresthesias, weakness, extremity weakness, extremity edema, rashes, urinary symptoms. Reports had anticoagulant last night. Denies No known afib, HTN, TIA, stroke Principal Dx & Hospital Course #1 = Principal Diagnosis (1) Dysarthria due to acute cerebrovascular accident (CVA): (2) Facial weakness due to acute cerebrovascular disease: Patient is 72 y/o F with [facility] mechanical valve replacement in 2000 in [place], on chronic anticoagulation presented to ER with her son with c/o dysarthria prior to arrival. Speaks Artemio, gujarati. Last anticoagulate taken yesterday evening. In ER noted dysphagia and right sided facial droop. Stroke alert. Patient was given TNK. During ER course right facial droop and dysarthria have resolved. Hypertensive in ER and given labetalol and hydralazine CT Head: No acute intracranial abnormality CTA Head, Neck: No acute intracranial abnormality. Unremarkable CTA of the head and neck. CXR: Cardiomegaly with no acute cardiopulmonary abnormality identified. Admit ICU for observation after TNK MRI brain if able to confirm mechanical valve info. Son is trying to find more info. The MRI department reached out to the principle software engineer, however principle software engineer was unable to look up information on this since this was done outside of the [place]. MRI on hold until further information can be obtained 02/26-She has new onset atrial fibrillation and a h/o cardiomyopathy in the past with repeat echo this admission consistent with that (EF 25%) The etiology is unclear. She was started on heparin today out of concern for high risk of thromboembolism (apixaban contraindicated, plan to resume coumadin once more stable from hemodynamic perspective) She has been experiencing pauses on the monitor and has also had intermittent nausea and vomiting that began this morning. (3) Atrial fibrillation: evidently this is chronic and she was managed on coumadin with INR 1.4 on admission Heparin drip as above. She has been experiencing bradycardia with pauses and a trial of dopamine was initiated today but this made her tachycardic and was stopped. (4) Elevated troponin: High-sensitivity troponin: 306. Denies chest pain May be demand ischemia from atrial fibrillation RVR in the setting of severe diffuse cardiomyopathy cont to follow cardiology recommendations for workup (5) Mechanical heart valve present: heparin drip now, transition to coumadin once she is more stable. (6) Bradycardia: symptomatic bradycardia (7) Cardiomyopathy: chronic, unclear etiology as she lives in [facility] and is cared for there. Reports to be on coreg, spironolactone and lasix, all currently on hold. Plan repeat CT head with acute development of intracranial bleed. Send to [facility] per Frameman family at bedside and informed of progress. Discharge Exam CONSTITUTIONAL: WNWD, vitals as above, ill appearing EYES: EOMI bilaterally, PERRL, normal conjucctivae, no scleral icterus ENT: external ear and nose normal, oropharynx clear, MMM NECK: trachea midline RESPIRATORY: clear to auscultation bilaterally, no crackles, rales or wheezes, normal respiratory effort CARDIOVASCULAR: regular rate and rhythm, S1 and 2 heard without murmurs, gallops or rubs, no JVD, no peripheral edema CHEST: inspection of chest was normal GASTROINTESTINAL: soft, nontender, ND, no guarding MUSCULOSKELETAL: strength 5/5 throughout, head is normocephalic and atraumatic, SKIN: warm and dry NEUROLOGIC: CN 2-12 grossly intact, no sensory deficit, normal cognition, normal speech, no tremor PSYCHIATRIC: alert cooperative and oriented to person, place and time. Updated Medication List Medication Instructions Recorded Confirmed Type Acenocoumarol 0.5 mg PO DAILY 02/25/23 02/25/23 History Spironlactone + Frusemide 1 tab PO DAILY 02/25/23 02/25/23 History aspirin 81 mg tablet,delayed 81 mg PO DAILY 02/25/23 02/25/23 History release carvedilol 12.5 mg tablet 12.5 mg PO BID 02/25/23 02/25/23 History Additional Medication Comments Current Inpatient Medications Heparin Sodium/Dextrose (Heparin Sodium/Dextrose) 25,000 units in 500 mls @ 12 mls/hr IV .Q24H [facility]; Protocol Stop: 03/28/23 10:14 Last Admin: 02/26/23 12:30 Dose: 600 units/hr, 12 mls/hr Dopamine HCl/Dextrose (Dopamine / D5w) 400 mg in 250 mls @ 0 mls/hr IV .Q0M [facility]; Protocol Stop: 03/28/23 14:14 Last Titration: 02/26/23 14:40 Dose: 0 mcg/kg/min, 0 mls/hr Miscellaneous (Icu Protocol For Hyperglycemia) 1 each N/A ACHS [facility] Stop: 02/27/23 20:59 Last Admin: 02/26/23 15:37 Dose: Not Given Miscellaneous Information (Pharmacist Discharge Med Rec Consult) 1 each N/A UD PRN PRN Reason: Consult Stop: 03/27/23 19:51 Hospital Stay Data Consultations 02/25/23 17:36 ED Decision to Admit Stat 02/25/23 19:52 Consult Frameman Routine Consult Neurology Routine 02/26/23 08:00 Consult Cardiology Routine Diagnostic Imagining Performed 02/25/23 15:41 CT angio head w con Stat CT angio neck with con Stat CT head/brain wo con Stat 02/26/23 17:00 CT head/brain wo con Stat Pending Results Patient Have Any Pending Studies at Discharge: No Discharge Instructions Given to Patient (Per Discharging Provider) You are being transferred in critical condition to a tertiary care center. Please ensure close follow-up with a heart doctor and primary care doctor after you are treated and discharge.d It was a pleasure taking care of you! Please call if you have any questions or problems. You can reach a [facility] hospitalist on duty at [facility] 24 hours a day by calling [phone]. Take care of yourself. Marija Ann, [facility] Medical Centerist Total Time Total Time Spent Total Time Spent (In Minutes): 60
[2023-02-26] MEDS ORDERED: STROKE PATIENT DISCHARGE STA (18:08)
--- NOTE | 2023-02-26 18:14 | CT Scan Report ---
CT head/brain wo con CLINICAL HISTORY: 72 years-old Female with 24 hr post tnk. Acute strokelike symptoms. TECHNIQUE: Multiple axial CT images of the head were obtained without contrast. A dose lowering tech nique was utilized adhering to the principles of ALARA. CT DOSE: 537.48 mGy.cm COMPARISON: 02/25/2023 FINDINGS: Involutional changes with chronic microvascular ischemic disease. Interval development of an acute in traparenchymal hematoma within the superior right cerebellar hemisphere measuring approximately 4.9 x 2.5 x 2.8 cm with considerable amount of surrounding vasogenic edema. Cause mass effect with leftwar d midline shift of the posterior fossa. Partial effacement of the fourth ventricle. No cerebellar ton sillar herniation. Partial effacement of the posterior horn right lateral ventricle. Motion degraded exam. The calvarium is intact. The paranasal sinuses, mastoid air cells, and middle ear cavities are clear. IMPRESSION: 1. Interval development of a 4.9 cm acute intraparenchymal hematoma of the superior right cerebellar hemisphere with considerable amount of vasogenic edema resulting in local mass effect. 2. No hydrocephalus or cerebellar tonsillar herniation identified at this time. This was made as a call report. ACT 112: Negative or not required by law. The above report was generated using voice recognition software. It may contain grammatical, syntax o r spelling errors. Electronically signed by: Fernando Madsen M.D. 02/26/2023 6:11 PM
--- NOTE | 2023-02-26 18:23 | Communication Note ---
Date of Service: February 26, [address], there is an obvious cerebellar hemorrhage with early mass effect. Heparin has been discontinued. Patient's neuro status remains unchanged from prior. Alert oriented protecting airway, she is experiencing frequent episodes of nausea and emesis. Discussed with the family transfer to tertiary care center they are opting to continue with [facility]. I contacted [facility] and discussed the case with Dr. Adam of neurovascular, given no hydrocephalus we will not start mannitol or hypertonic saline. Accepting to the ICU is Dr. Duarte Coding Level of Care Code None
[2023-02-26 19:31] LABS: INR 1.2 (0.9-1.1); Partial Thromboplastin Ratio 1.1; Partial Thromboplastin Time 31.1 Seconds (21.0-31.0); Prothrombin Time 13.3 Seconds (9.0-12.0)
--- NOTE | 2023-02-27 14:11 | Electrocardiogram Report ---
Test Reason : Blood Pressure : / mmHG Vent. Rate : 099 BPM Atrial Rate : 090 BPM P-R Int : 000 ms QRS Dur : 102 ms QT Int : 328 ms P-R-T Axes : 000 035 212 degrees QTc Int : 420 ms Atrial fibrillation Abnormal ECG When compared with ECG of 26-FEB-2023 06:37, QT has shortened Confirmed by Rainer Reid ([id number]) on 02/27/2023 2:10:39 PM Referred By: REFERRED SELF Confirmed By:Rainer Reid
== END 2023-02-26 20:00 | disposition short-term general hospital (02) | DRG 92 ==
LOC: EDBD → ED 15:24 → SUATTDRO 18:50 → 1E 18:50